=== PATIENT | male | born 1960 | race Caucasian/White ===

== ENCOUNTER → 2023-11-19 17:25 | Outpatient (REF) | payer OTHER, SELFPAY | LOC: MRI 3T 17:25 | PROVIDERS: ATTENDING PHYSICIAN Specialist; FAMILY PHYSICIAN Internal Medicine | DX: R97.20 Elevated prostate specific antigen [PSA] (principal) | CPT/HCPCS: 72197; A9575 ==

== ENCOUNTER 2024-01-20 13:49 | Outpatient (RCR) | payer OTHER, SELFPAY | END 2024-01-20 23:59 | disposition home or self-care (01) | LOC: RPT 13:49 | PROVIDERS: ATTENDING PHYSICIAN Specialist; FAMILY PHYSICIAN Internal Medicine | DX: C61 Malignant neoplasm of prostate (principal); Z73.6 Limitation of activities due to disability; R27.8 Other lack of coordination | CPT/HCPCS: 97112; 97161; 97530 ==

== ENCOUNTER 2024-01-22 15:08 | Inpatient (IN) | payer OTHER, SELFPAY ==
[2024-01-13 08:01] VITALS: BMI 25.2
[2024-01-13 08:55] LABS: INR 0.98; PT 12.8 Sec (11.4-14.6)
[2024-01-13 08:56] LABS: APTT 28.9 Sec (23.4-35.0)
--- NOTE | 2024-01-13 12:08 | CM ---
Patient is scheduled for a Robotic Prostatectomy on 01/22/24. Spoke with patient prior to surgery via telephone to complete case management assessment and assess for discharge planning needs. Patient reports that he lives with his in a multi
story home. There are three steps to enter and a flight of steps to the second floor. He currently functions independently. He has no DME and has never had VN services. He has a prescription plan and uses [facility] in [place].
PCP is Gely Roach
Discussed discharge plans. Patient plans to return home at discharge. Discussed possible need for VN services and reviewed options. Patient states that if services are needed, he has no preference for an agency. Discussed using VN for services
and he is agreeable.
[place] text sent to VN liaison, Ingrid Dominique, alerting her to surgery date and possible need for VN.
--- NOTE | 2024-01-20 15:33 | VNURNOTE ---
Home Health Liaison spoke with patient at 1530 by phone to discuss [facility] nurse visits and possible need following surgery.
Patient has had a catheter in past and does not anticipate need of VN at discharge.
Liaison will continue to follow and offer [facility] at discharge as needed.
[2024-01-22] VITALS (62 sets, daily range): BP systolic 70–149; BP diastolic 54–85; BMI 25.2
[2024-01-22] MEDS: NEOMYCIN ENEMA 1 BOTTLE RECTAL (06:35)
[2024-01-22] MEDS: NORMOSOL-R 1000 IV ×4 (07:02→21:09)
[2024-01-22] MEDS: SUBLIMAZE 25 MCG IV (12:29)
[2024-01-22] MEDS: DETROL LA 4 MG PO (12:40)
--- NOTE | 2024-01-22 13:06 | SUR.PHASEI ---
Pt.'s BP 88/58. Mentating. Following commands. Dr. Beal notified and will give a 500ml bolus and re-evaluate. Will continue to monitor
[2024-01-22 13:45] LABS: Hemoglobin 11.3 g/dL (13.0-18.0)
--- NOTE | 2024-01-22 13:45 | SUR.PHASEI ---
1300 BP in the 70's. Dr. Beal notified and will give a 500ml bolus. Pt asymptomatic.
1310 Dr. Harrison updated about pt.'s BP and will increase floor fluids to Normosol 150ml/hr after bolus.
1330 BP drops to 70's after bolus done and fluids started at 150ml/hr. Dr. Beal notified. Will draw H&H
1336 Dr. Harrison updated on this, will continue to monitor in PACU
--- NOTE | 2024-01-22 13:50 | SUR.PHASEI ---
1350 Dr. Beal at bedside and wants to hold off on Joe gtt and to give 250ml fluid bolus and then put pt on floor fluids 150ml/hr and see how he does and if low give intermittent 250ml fluid boluses. Will continue to monitor
--- NOTE | 2024-01-22 14:30 | SUR.PHASEI ---
Dr. Harrison at bedside and putting orders in for IMU and hospitalist consult
--- NOTE | 2024-01-22 14:33 | W.PN.URO.CBU ---
Today's Communication / Plan
-
will admit to IMU and consult Hospitalists to assist in supportive care
Assessment / Plan
-
post-op hypotension with normal HR, UO and acceptable H&H
Diagnosis
-
Date of Service: January 22, 2024
-
Patient Diagnosis: prostate cancer s/p robotic prostatectomy
Post Op Day: 0
Subjective
-
awake and conversant in PACU
no angina, dyspnea, leg pain
'I have to work to breath deeply enough so the monitor doesn't go off'
Objective
-
Vital Signs
Temp Pulse Resp BP Pulse Ox
98.5 F 80 18 84/60 96
01/22/24 11:55 01/22/24 14:30 01/22/24 14:30 01/22/24 14:25 01/22/24 14:30
Intake and Output
01/21/24 01/22/24 01/23/24
06:59 06:59 06:59
Output Total 250 / 250
Balance -250 / -250
Output:
Urine, Casarez 250 / 250
Laboratory Results
01/22/24 13:33
Physical Exam
-
General - well developed, well nourished, no acute distress
Chest - clear bilaterally
Abdomen - soft, no distention
Genitalia - Casarez drainining thinly bloody urine
Neuro - AOx3, no motor deficits
Extremities - no clubbing, no cyanosis, no edema
Dressings - clean, dry, intact
--- NOTE | 2024-01-22 15:18 | CON.HOSP ---
Consultation
-
Date/Time Consultation Requested: 01/22/24 2:30 PM
Date/Time Consultation Performed: 01/22/24 3:00 PM
Requesting Provider: Dr. Michael Harrison
Performing Provider: Dr. Azucena Day
Reason for Consultation: post op hypotension
Family Physician
-
Family Physician: Gely Roach
Chief Complaint
-
planned robotic prostatectomy
History of Present Illness
Patient is a 64-year-old male with a history of essential hypertension, hyperlipidemia diet controlled and prostate cancer who presented for planned robotic prostatectomy. Postop blood pressure has been running low (70s to 80s over 50s to 60s).
Estimated blood loss was approximately 75 mL, patient did not take any of his blood pressure medications today. He has not had any recent steroids. We are asked to see the patient for postoperative hypotension as the patient is going to the IMU.
Medical History
Past Medical History
Past Medical History: Reports Other
Additional Past Medical History:
Essential hypertension
Borderline hyperlipidemia�diet control
Anxiety/depression
Benign prostatic hyperplasia
Prostate cancer
Past Surgical History: Reports Other
Additional Past Surgical History:
Skin grafts
Left hydrocelectomy
Vasectomy
Clavicle repair
Fibular plate
Pins in his thumb
Social History
Tobacco: Non-smoker
Alcohol: Occasional
Drug: None
Personal:
Living: With Family
Family History
Family History: Reviewed & Not Pertinent
Allergies / Home Medications
Allergies reflects when Allergies were last updated in [employer].
Home Medications with original date entered in [employer]
Allergy/Medication List:
Allergies
Allergy/AdvReac Type Severity Reaction Status Date / Time
No Known Allergies Allergy Verified 01/22/24 06:14
Home Medications
fish oil-dha-epa 1,200 mg-144 mg-216 mg capsule 1 ea PO DAILY 01/10/16
lisinopril 40 mg tablet (Zestril) 40 mg PO DAILY 01/10/16
escitalopram oxalate 10 mg tablet (Lexapro) 10 mg PO DAILY 01/13/24
hydrochlorothiazide 25 mg tablet 25 mg PO DAILY 01/13/24
multivitamin 1 tab PO DAILY 01/13/24
naproxen sodium 220 mg capsule 440 mg (2 x 220 mg) PO BID PRN pain #1 cap 01/22/24
tramadol 50 mg tablet 50 mg PO TID PRN severe pain #10 tabs 01/22/24
Review of Systems
-
History Source: Patient
Constitutional: Reports No Symptoms
EENT: Reports No Symptoms
Respiratory: Reports No Symptoms
Cardiac: Reports No Symptoms
Abdomen/GI: Reports No Symptoms
: Reports No Symptoms
Musculoskeletal: Reports No Symptoms
Skin: Reports No Symptoms
Neurological: Reports No Symptoms
Endocrine: Reports No Symptoms
Hematologic/Lymphatic: Reports No Symptoms
Psych: Reports No Symptoms
Physical Exam
Vital Signs
Vital Signs
Temp Pulse Resp BP Pulse Ox
98.5 F 86 15 82/59 97
01/22/24 11:55 01/22/24 15:05 01/22/24 15:05 01/22/24 15:05 01/22/24 15:10
Physical Exam
General: Well Developed, Well Nourished and No Apparent Distress
HEENT: Normocephalic, Anicteric and Oxygen (Postop)
Respiratory: Clear; Negative Wheezes, Rales or Rhonchi
Cardiac: S1/S2 and Regular Rhythm; Negative Bradycardia or Tachycardia
GI: Soft, Non Distended, Normal Bowel Sounds and Tender (post op)
Musculoskeletal: No Clubbing, No Cyanosis and No Edema
Skin: Warm
Neuro: Awake and Alert
Psych: Calm
Laboratory Results
-
Laboratory Results
01/22/24 13:33
PT 12.8 Sec (11.4-14.6) 01/13/24 07:56
INR 0.98 01/13/24 07:56
APTT 28.9 Sec (23.4-35.0) 01/13/24 07:56
Impression / Plan
-
Pt is a 64 year old male
post op hypotension--suspect all due to anesthesia, poor PO intake pre surgery, colon prep--agree with transition to IMU--cont normosol at 200ml/hr--ordered abbi if needed to keep SBP > 90--I do not believe this is sepsis, acute blood loss, improper
cuff size, recent steroid use, etc
essential HTN--HOLD all BP meds for now--BP at home usually runs 140 systolic
HLD--diet controlled
prostate cancer--post op robotic--care per urology
anxiety/depression--hold meds acutely
DVT proph
code status -- FULL CODE
[2024-01-22] MEDS: TORADOL 15 MG IV ×2 (16:44→21:10)
[2024-01-22] MEDS: COLACE PO (17:57)
--- NOTE | 2024-01-22 18:06 | PTCARENOTE ---
Patient received from PACU. AAox3, reports mild discomfort in abd, VS within normal limits. Ordering dinner at this time, family at bedside.
[2024-01-22] MEDS: POLYSPORIN/DOUBLE ANTIBIOTIC 1 APPLIC TOPICAL (21:08)
[2024-01-22] MEDS: POLYSPORIN/DOUBLE ANTIBIOTIC TOPICAL (21:08)
[2024-01-23] VITALS (28 sets, daily range): BP systolic 76–151; BP diastolic 50–133; PULSE 95–115; BMI 25.8
[2024-01-23] MEDS: TYLENOL 650 MG PO (00:19)
--- NOTE | 2024-01-23 00:30 | PTCARENOTE ---
Received pt at the change of shift awake and alert and family in the room. He was eating dinner. Drinking fluids without difficulty. Abd dressings are dry and intact. he has incisional pain with movement and deep breathing and pt states it is
tolerable. Medicated with Tylenol for pain rated 4/10. Pt's skin is warm and dry and he is able to move and turn on his side without difficulty. No bleeding noted. Casarez draining tea colored urine 350cc so far this shift. IV fluids infusing at
200cc/hr. Bladder scanned for 21 cc. Pt reports his pain is middle to lower abdomen with no bladder spasms.
[2024-01-23] MEDS: NORMOSOL-R 1000 IV (01:53)
[2024-01-23] MEDS: MORPHINE SULFATE 4 MG IV (01:55)
--- NOTE | 2024-01-23 02:39 | PTCARENOTE ---
Pt complained of abd pain, incisional pain, also thought he needed to have a BM, sat on side of bed and pt became unresponsive, laid back down and when flat pt was more alert. Cardiac rhythm did not change when pt was unresponsive, Rhythm was NSR.
Back in bed lying flat and bp WNL. [place] better. Gave pt Morphine for pain and he felt better. Will continue to monitor.
[2024-01-23] MEDS: TORADOL 15 MG IV (04:23)
[2024-01-23 05:47] LABS: % Basophils 0.1 % (0-2); % Eosinophils 0.1 % (0-6); % Immature Granulocytes 0.3 % (0-0.5); % Monocytes 13.7 % (1.7-9.3); % Neutrophils 71.8 % (42.2-75.2); Absolute Lymphocytes 1.8 10^3/uL (1.2-3.4); Absolute Monocytes 1.7 10^3/uL (0.1-0.6); Absolute Neutrophils 8.9 10^3/uL (1.4-6.5); Hematocrit 22.1 % (39.0-52.0); Mean Corp Hgb Conc. 35.7 g/dL (33.0-37.0); Mean Corpuscular Hgb 29.9 pg (27.0-31.0); Mean Corpuscular Volume 83.7 fL (80.0-94.0); Mean Platelet Volume 9.5 fL (7.4-10.4); Nucleated Red Blood Cells % 0 % (-); Platelet Count 270 10^3/uL (130-400); Red Blood Cell Count 2.64 10^6/uL (4.70-6.10); Red Cell Dist. Width 13.1 % (11.5-14.5); White Blood Cell Count 12.5 10^3/uL (4.8-10.8)
[2024-01-23 06:25] LABS: ALT (SGPT) 27 U/L (0-50); AST (SGOT) 22 U/L (17-59); Albumin 2.5 g/dl (3.5-5.0); Alkaline Phosphatase 40 U/L (38-126); Blood Urea Nitrogen 23 mg/dl (9-20); Calcium 7.5 mg/dl (8.4-10.2); Carbon Dioxide 29 mmol/L (22-30); Chloride 92 mmol/L (98-107); Estimated Creatinine Clearance 105 ml/min; Glucose 118 mg/dl (70-99); Potassium 4.1 mmol/L (3.5-5.1); Sodium 125 mmol/L (135-145); Total Bilirubin 0.6 mg/dl (0.2-1.3); Total Protein 4.3 g/dl (6.3-8.2); eGFR > 60.00
[2024-01-23 06:30] LABS: Hemoglobin 7.9 g/dL (13.0-18.0)
--- NOTE | 2024-01-23 07:34 | W.PN.URO.CBU ---
Today's Communication / Plan
-
H&H drop is concerning for bleeding, though could be exaggerated by vigorous hydration
HD stable
making urine
expected degree of A-P discomfort post-op
Plan:
stop IVF
will recheck H&H ~ 2 PM and provisionally T&S
Hospitalists' support is appreciated.
Assessment / Plan
-
post-op hypotension with normal HR, UO and acceptable H&H
Diagnosis
-
Date of Service: January 23, 2024
-
Patient Diagnosis:
Post Op Day:
Patient Diagnosis: prostate cancer s/p robotic prostatectomy
Post Op Day: 1
Subjective
-
'feels like gas' -- abdominal-pelvic discomfort
no dyspnea/angina/leg pain
Objective
-
Vital Signs
Temp Pulse Resp BP Pulse Ox
99.0 F 85 21 122/79 94
01/23/24 04:15 01/23/24 06:30 01/23/24 06:30 01/23/24 06:00 01/23/24 06:30
Intake and Output
01/22/24 01/23/24 01/24/24
06:59 06:59 06:59
Intake Total 5300 / 5300
Output Total 1250 / 1250
Balance 4050 / 4050
Intake:
Oral fluids 900 / 900
IV fluids (Total) 4400 / 4400
normosol 2000 / 2000
Output:
Urine, Casarez 1250 / 1250
Laboratory Results
01/23/24 05:36
Physical Exam
-
General - no acute distress
Abdomen - mildly tender, positive bowel sounds, mild distention
Genitalia - Casarez with shannon urine
Skin - warm & dry with no rash
Neuro - AOx3, no motor deficits
Extremities - no clubbing, no cyanosis, no edema
Dressing - clean, dry, intact
--- NOTE | 2024-01-23 07:56 | PTCARENOTE ---
Received Pt from material handler 1st shift. Pt c/o need for BM. Pt assisted to sit on side of bed. While sitting on side, pt with near syncopal episode. Pt assisted to lie back down. Pt provided with bed vasques. Educated regarding safety precautions, call miles use,
not getting up without assistance. call miles in reach.
--- NOTE | 2024-01-23 08:03 | PTCARENOTE ---
At 0630 hgb reported as 7.[address] Maynard and order given to recheck Hand H at [address] also informed of pt's urine output and vagal episode during this shift. as noted in a prior note. Pt felt much better after receiving Morphine IV for abd
pain and slept well without beverley further complaints.
[2024-01-23] MEDS: ZESTRIL 40 MG PO (09:01)
[2024-01-23] MEDS: ORETIC 25 MG PO (09:04)
[2024-01-23] MEDS: COLACE PO ×3 (09:04→15:40)
[2024-01-23] MEDS: LEXAPRO 10 MG PO (09:04)
[2024-01-23] MEDS: POLYSPORIN/DOUBLE ANTIBIOTIC 1 APPLIC TOPICAL ×2 (09:05→20:41)
--- NOTE | 2024-01-23 09:27 | W.PN.HOSP.TC ---
Addendum entered and electronically signed by Azucena Day MD 01/23/24 17:53:
hyponatremia--likely due to significant IVF resuscitation for hypotension
Original Note:
Today's Communication/Plan
-
would try orthostatics later in the day
cont diet
stop IVF
hold BP meds
Assessment / Plan
Assessment / Plan
Pt is a 64 year old male
post op hypotension--suspect all due to anesthesia, poor PO intake pre surgery, colon prep--never needed pressors--BP no 151/86 but likely orthostatic with syncope--I do not believe this is sepsis, improper cuff size, recent steroid use, etc
anemia--likely acute 'loss' from IV dilution (aggressive IVF)--EBL from surgery only 75ml--doubt active bleeding--will check H&H at noon--if still low, consider transfusion
essential HTN--HOLD all BP meds for now--BP at home usually runs 140 systolic
HLD--diet controlled
prostate cancer--post op robotic--care per urology
anxiety/depression--hold meds acutely
DVT proph
code status -- FULL CODE
Anticipated Discharge: 24 - 48 hours
Subjective/Interval History
-
Date of Service: January 23, 2024
pt had syncopal episode likely still somewhat orthostatic
Objective Data
-
Labs:
Laboratory Results
01/23/24 01/23/24 01/23/24
05:36 12:00 14:00
WBC 12.5 H Cancelled
Hgb 7.9 L D Pending Cancelled
Hct 22.1 L Pending
Plt Count 270
Sodium 125 L
Potassium 4.1
Chloride 92 L
Carbon Dioxide 29
BUN 23 H
Creatinine 0.8
Glucose 118 H
Calcium 7.5 L
Total Bilirubin 0.6
AST 22
ALT 27
Alkaline Phosphatase 40
01/23/24 01/23/24
14:00 14:00
WBC
Hgb Pending
Hct Cancelled Pending
Plt Count Cancelled
Sodium
Potassium
Chloride
Carbon Dioxide
BUN
Creatinine
Glucose
Calcium
Total Bilirubin
AST
ALT
Alkaline Phosphatase
Vital Signs:
max temp for 24 hours
01/23/24
04:15
Temp 99.0 F
Vital Signs
Temp Pulse Resp BP Pulse Ox
99.3 F 85 21 151/86 94
01/23/24 07:00 01/23/24 06:30 01/23/24 06:30 01/23/24 09:04 01/23/24 06:30
I&O
01/22/24 01/23/24 01/24/24
06:59 06:59 06:59
Intake Total 5300 / 5300
Output Total 1250 / 1250
Balance 4050 / 4050
Review of Systems
-
All other systems: Reviewed and negative
Physical Exam
-
General: Well Developed, Well Nourished and No Apparent Distress
HEENT: Normocephalic and Atraumatic
Respiratory: Clear to Auscultation; Negative Wheezes or Rhonchi
Cardiac: Regular Rhythm and S1/S2; Negative Murmur
GI: Soft, Nontender, Nondistended and Normal Bowel Sounds
Genito-urinary: Casarez
Musculoskeletal: No Clubbing, No Cyanosis and No Edema
Neuro: Awake and Alert
Psych: Calm
--- NOTE | 2024-01-23 12:42 | PN.CDI ---
CDI
- -
CDI:
Physician Documentation Request
Admit Date: 01/22/24 15:08
Dear Doctor Shay
,
Please review the following and provide your response in the progress notes.
Clinical Indicators:
Laboratory Tests
01/23/24
05:36
Sodium 125 L
Please clarify in the progress notes, the appropriate diagnosis, if significant, that supports the above abnormalities and additional evaluation, monitoring and/or treatment rendered:
Hyponatremia
Abnormal lab value, clinically insignificant
Other
Use of terms such as suspected, likely, concern for, or probable (associated with a specific diagnosis that is being evaluated, monitored, or treated as if it exists) are acceptable and can be coded in the inpatient setting, when documented at the
time of discharge.
Thank you,
Azucena Araujo RN BSN CCDS
CDI Specialist
please contact via tiger text
Please use your independent medical judgment in providing your response.
[2024-01-23 13:37] LABS: Hemoglobin 7.3 g/dL (13.0-18.0)
[2024-01-23 13:52] LABS: Hematocrit 20.3 % (39.0-52.0)
--- NOTE | 2024-01-23 14:20 | PTCARENOTE ---
Pt's hgb down to 7.3. Positive orhostatic vitals. Notified Dr. Harrison and Dr. Day. 2 units PRBC ordered
--- NOTE | 2024-01-23 15:17 | CM ---
Patient with Dx prostate cancer s/p robotic prostatectomy with post op hypotension, anemia. Abdominal dressings. Mayorga in place.
Met with patient who resides with his in a 2 story house.
The patient has been independent in ADLs and ambulation.
Prior to admission he was active and working.
The patient has no DME, prior VN or SNF.
PCP - Gely Roach
Pharmacy - [facility]
CM Consult: VN
Remove mayorga and skin nasrin then apply Benzoin & Steri Strips during am 01/30.
Hand irrigate mayorga TID prn w 250 ml sterile saline or H20.
(see consult for full MD order)
Offered VN for abdominal wound care and mayorga cath care and patient agreed - he prefers [facility].
Referral to [facility].
Plan home with [facility].
--- NOTE | 2024-01-23 15:30 | W.PN.UPDATE ---
Update Note
Progress Note Update
H&H down slight further and hypotension persists, so after communication with Dr Day and RN, a decision has been made to transfuse 2 units PRBCs for presumed post-op bleeding.
--- NOTE | 2024-01-23 16:13 | VNURNOTE ---
Home Health Liaison met with patient at 1530 to discuss [facility] nurse visits. Patient is agreeable and understands that visits at home will be 2-3 x per week to assess and teach medical managementq and catheter care.
[facility] brochure provided with contact information. Patient is aware that [facility] will contact him for start of care in 1-2 days after discharge from .
[facility] referral completed in [facility].
[2024-01-23] MEDS: CYKLOKAPRON 1300 MG PO (16:21)
--- NOTE | 2024-01-23 17:21 | PTCARENOTE ---
RTC from blood bank stating they were having difficulty determing pt's blood type and that they had to conduct extra investigation. Pt reports he is A+ and blood bank was able to determine that he is A+. Blood Bank felt this issue may be related to
his cancer diagnosis or meds. RN updated Dr. Day and Dr. Harrison via TT of this issue
--- NOTE | 2024-01-23 18:19 | PTCARENOTE ---
Pt O2 sat 90-92 on . RN provided eduation on IS usage. Pt demonstrated good technique.
--- NOTE | 2024-01-23 21:47 | PTCARENOTE ---
Pt complaining of not being able to take a deep breath. Resp rate 33. Pox 87-91% on room air. Just finished infusing his first unit of PRBC's Pt used Incentive spirometry up to 1500cc but still feels like he's not breathing right. He does have
incisional pain with deep breathing and moving and does splint his abdomen with movement and deep breathing. Placed on O2 a2 L NC and pox improved to 95%Breath sounds are very diminished bilaterally. Casarez draining clear yellow urine, small
amounts. ENGINEERING ILLUSTRATOR notified and Dr Ta TT orders to follow. Arellano continue to monitor.
--- NOTE | 2024-01-23 22:16 | W.PN.UPDATE ---
Update Note
Progress Note Update
Called by nurse due to shortness of breath and mild hypoxia following blood transfusion of first unit PRBCs
Transfusion delayed due to difficulty obtaining patient's blood type, eventually determined to be A+
Vitals with mild tachycardia and 92% on 2L, otherwise stable BP and improved from initial post op hypotension
I/O unbalanced - has had good urine output today but large volume of IVF in past 24hrs
Ordered STAT cbc, bmp, troponin, EKG, d-dimer, CXR
Reviewed with Dr. Harrison - no intraop concerns
Differential includes transfusion reaction, fluid overload, PE, bleeding complication, ACS
[2024-01-23 22:35] LABS: Hemoglobin 7.7 g/dL (13.0-18.0); Mean Corp Hgb Conc. 36.7 g/dL (33.0-37.0); Mean Corpuscular Hgb 30.4 pg (27.0-31.0); Mean Platelet Volume 9.1 fL (7.4-10.4); Platelet Count 248 10^3/uL (130-400); Red Blood Cell Count 2.53 10^6/uL (4.70-6.10); Red Cell Dist. Width 13.2 % (11.5-14.5); White Blood Cell Count 10.5 10^3/uL (4.8-10.8)
[2024-01-23 22:48] LABS: D-Dimer 2.63 ug/mlFEU (0.00-0.50)
[2024-01-23 22:49] LABS: Blood Urea Nitrogen 17 mg/dl (9-20); Calcium 7.6 mg/dl (8.4-10.2); Carbon Dioxide 27 mmol/L (22-30); Chloride 94 mmol/L (98-107); Estimated Creatinine Clearance 120 ml/min; Glucose 110 mg/dl (70-99); Potassium 3.8 mmol/L (3.5-5.1); Sodium 123 mmol/L (135-145); eGFR > 60.00
[2024-01-23] MEDS: MORPHINE SULFATE 1 MG IV (22:56)
[2024-01-23 23:00] LABS: Troponin I < 0.012 ng/ml
[2024-01-23] MEDS: CYKLOKAPRON PO (23:02)
--- NOTE | 2024-01-23 23:04 | W.PN.UPDATE ---
Update Note
Progress Note Update
Labs show some HGB response to transfusion - not enough time to equilibrate post transfusion so may be inaccurate
CXR doesn't show obvious fluid overload, however will give lasix given significant I/O imbalance
EKG with minor changes from preop, no ACS
Patient assessed at bedside by eye care professional provider and appears SOB. Repeat vitals stable with 97% on 2L, no hypotension
D dimer is elevated
CT PE protocol and CT abd/pel ordered
[2024-01-23] MEDS: LASIX 40 MG IV (23:06)
[2024-01-24] VITALS (67 sets, daily range): BP systolic 86–186; BP diastolic 51–116; BMI 26.8
--- NOTE | 2024-01-24 00:36 | PTCARENOTE ---
t had Chest X ray and ECG and blood work per Dr Vyas orders. Pt also went for a CT of abd and chest. Radiologist Called with report of CT scan. 'Large hemoperitoneum due to an active extravasation of a L internal iliac vessel. ' Reported to
INFORMATICS APPLICATION ANALYST and she was in contact with Dr Ta and Dr Syed chaudhry and Vascular surgeon. Second unit ob blood started. Surgeon on the way in.
[2024-01-24] MEDS: NSS 1000 IV ×2 (00:43→02:37)
--- NOTE | 2024-01-24 01:18 | PTCARENOTE ---
Pt became nauseous and diaphoretic and pale and BP was low 86/51. HOB lowered and Pt positioned on his L side and Iv=V fluids are running wide open. Blood is also running and pt feels better. skin is now dry and he is more comfortable and BP 16.65
MAP 80. HR 98 RR 31
[2024-01-24 01:19] LABS: Venous Blood Gas B.E. 3.5 mmol/L (-4 to +4); Venous Blood Gas HCO3 27.8 mmol/L (22-27); Venous Blood Gas O2 Sat % 99.7 %; Venous Blood Gas pCO2 40 mmHg (35-48); Venous Blood Gas pH 7.45 (7.32-7.43); Venous Blood Gas pO2 174 mmHg (30-50)
[2024-01-24 01:31] LABS: Lactic Acid 1.5 mmol/L (0.7-2.0); PT 15.7 Sec (11.4-14.6)
[2024-01-24 01:32] LABS: APTT 26.7 Sec (23.4-35.0); Fibrinogen 290 MG/DL (199-459)
[2024-01-24 01:34] LABS: INR 1.25
--- NOTE | 2024-01-24 01:48 | W.PN.UPDATE ---
Update Note
Progress Note Update
CT scan showed pelvic hematoma with some active contrast extravasation
CT chest did not show obvious PE but limited by motion artifact
Case discussed with vascular surgery and interventional radiology - based on relatively stable HGB today after initial drop, an active arterial bleed amenable to percutaneous intervention is unlikely
Patient seen and examined at bedside
Some hypotension after returning from CT scan quickly improved with IV fluid bolus and the start of second unit of blood
BPs currently in 110s/70s
Post transfusion HGB ordered for 2 hours after completion
Transfer to ICU for closer monitoring
Discussed plan with patient and family
--- NOTE | 2024-01-24 02:00 | SUR.OPER ---
Pt transferred from IMU. Received resting comfortably in bed. Pt states 'I feel much better'. at bedside. AAOx3-slightly anxious. Forgetful at times. SR on the monitor. Normotensive. + pulses. Tachypneic RR high 20s-30s. Lungs clear pox 98% on
2L. +BS. Abd mildly distended + tender - c/o 2/10 pain. 5 sites across abd dressed w/ gauze and tegaderm. CDI. NS Bolus running and PRBC (2nd unit). Oriented to room.
--- NOTE | 2024-01-24 02:39 | TRANSFER ---
Pt transferred to ICU via his bed accompanied by his at the bedside. Dr Ta was at the bedside updating and patient on the plan of care. NSS IV running wide open in new R arm IV site and Blood infusing via L fore arm IV. Pt is able
to ask questions and is alert. Report given to Lilly.
[2024-01-24] MEDS: CALCIUM GLUCONATE 130 MG IV (03:22)
[2024-01-24 05:18] LABS: Hemoglobin 7.2 g/dL (13.0-18.0); Mean Corp Hgb Conc. 35.3 g/dL (33.0-37.0); Mean Corpuscular Hgb 30.3 pg (27.0-31.0); Mean Corpuscular Volume 85.7 fL (80.0-94.0); Mean Platelet Volume 9.7 fL (7.4-10.4); Platelet Count 219 10^3/uL (130-400); Red Blood Cell Count 2.38 10^6/uL (4.70-6.10); Red Cell Dist. Width 12.9 % (11.5-14.5); White Blood Cell Count 15.2 10^3/uL (4.8-10.8)
[2024-01-24 05:19] LABS: Hematocrit 20.4 % (39.0-52.0)
[2024-01-24 05:34] LABS: Blood Urea Nitrogen 17 mg/dl (9-20); Calcium 8.2 mg/dl (8.4-10.2); Carbon Dioxide 27 mmol/L (22-30); Chloride 95 mmol/L (98-107); Estimated Creatinine Clearance 120 ml/min; Glucose 119 mg/dl (70-99); Magnesium 1.9 mg/dl (1.6-2.3); Potassium 4.2 mmol/L (3.5-5.1); Sodium 127 mmol/L (135-145); eGFR > 60.00
--- NOTE | 2024-01-24 06:20 | PTCARENOTE ---
Addendum entered by Lilly Weir RN 01/24/24 07:37:
Pt w/ c/o nausea - 1x Zofran ordered.
Original Note:
Pt w/ new noted bruising to R flank/back area. 1 unit of blood transfusing. Urology made aware.
[2024-01-24] MEDS: ZOFRAN 4 MG IV (06:35)
--- NOTE | 2024-01-24 07:36 | W.SUR.PREOP ---
Pre-Operative Surgical Note
-
Due to evidence of symptomatic, persistent, post-op bleeding, the patient will be returned to OR for exploration, evacuation of hematoma and stoppage of persistent bleeding.
at bedside.
OR consent signed.
--- NOTE | 2024-01-24 07:44 | CON.INTV ---
Addendum entered and electronically signed by Tamia Pryor MD 01/24/24 08:21:
Reviewed EKG. Isolated Q-wave in lead III
Not present on preadmission EKG
Patient is without any chest pain, nausea, heartburn
states patient has never had any cardiac issues. 'He is healthy'
Notified urology and hospitalist
Original Note:
Consultation
Consultation Request
Date/Time Consultation Requested: 01/23
Date/Time Consultation Performed: 01/23
Reason for Consultation: Critical care
Medical History
-
History of Present Illness:
History obtained from the chart, patient and at bedside. Patient is a 64-year-old male with recently diagnosed prostate cancer, status post robotic prostatectomy 01/22/2024. Postoperatively, pulse 80, blood pressure 80/60, 96%. Postoperative
course significant for drop in hemoglobin postoperatively and shortness of breath. Patient was given IV fluids, transfused 2 units and transferred to ICU. Hypotension improved per urology correspondence overnight. Despite 2 units of transfusion,
hemoglobin remained between 7 and 8 with no appropriate bump. Abdominal imaging revealed large left pelvic hematoma, with complex/hemorrhagic fluid. There is no evidence of PE. There is pneumoperitoneum. We are asked to help from critical care
standpoint
Currently, patient is getting his third unit. He is feeling improved since yesterday p.m. He has some mild nausea/GERD symptoms but denies chest pain, shortness of breath. He does have abdominal pain, worse with cough spasms. He is lying flat,
at bedside
.
PMH: Hypertension, hyperlipidemia, prostate cancer
Past Medical History
Past Medical History: None (See above)
Past Surgical History: None (See above)
Social History
Tobacco: Former Smoker (Quit 40 years ago)
Alcohol: Occasional
Drug: None
Personal:
Living: With Family
Employment: Employed (IT)
Family History
Family History: Other (Father from Parkinson's, mother alive at age 84. 2 daughters healthy. 1 sister healthy.)
Allergies / Home Medications
Allergies
Allergy/AdvReac Type Severity Reaction Status Date / Time
No Known Allergies Allergy Verified 01/22/24 06:14
Home Medications
�Medication �Instructions �Recorded �Confirmed �Last Taken �Type
fish oil-dha-epa 1,200 mg-144 1 ea PO DAILY Supplement 01/10/16 01/22/24 01/08/24 History
mg-216 mg capsule
lisinopril 40 mg tablet (Zestril) 40 mg PO DAILY Blood Pressure 01/10/16 01/22/24 01/21/24 05:00 History
escitalopram oxalate 10 mg tablet 10 mg PO DAILY Mental 01/13/24 01/22/24 01/22/24 05:00 History
(Lexapro) Health/Anxiety
hydrochlorothiazide 25 mg tablet 25 mg PO DAILY Fluid 01/13/24 01/22/24 01/21/24 08:00 History
Retention/Swelling
multivitamin 1 tab PO DAILY Supplement 01/13/24 01/22/24 01/08/24 History
naproxen sodium 220 mg capsule 440 mg (2 x 220 mg) PO BID PRN 01/22/24 Unknown Rx
pain #1 cap
tramadol 50 mg tablet 50 mg PO TID PRN severe pain #10 01/22/24 Unknown Rx
tabs
Review of Systems
-
All other systems: Negative unless noted
Vitals / Labs / Diagnostic Testing
Vital Signs
Temp Pulse Resp BP Pulse Ox
98.8 F 95 26 136/79 99
01/24/24 07:32 01/24/24 06:42 01/24/24 06:42 01/24/24 06:42 01/24/24 06:42
Lab Data
01/24/24 04:54
Laboratory Results
01/24/24
01:12
PT 15.7 H
INR 1.25
APTT 26.7
Diagnostic Testing:
Physical Exam
-
HEENT: Normocephalic and Anicteric
Cardiovascular: S1/S2, Regular Rhythm, Murmur (n) and Rub (n)
Respiratory: Wheeze (n), Rales (n), Rhonchi (n) and Non-Labored Respirations
GI: Soft, Distended and Tender
Neurology: Awake, Alert, Oriented and No Motor Deficits (Moves all extremities, sequential teds in place)
Skin: Other (No rash)
General: Comfortable (Lying flat)
Assessment
-
64-year-old male with history of hypertension status post robotic prostatectomy 01/22/24, complicated by hypotension, anemia requiring transfusion, shortness of breath. Imaging suggest large left sided pelvic wall hematoma. Patient transferred to
ICU 01/24/24
Hypotension, secondary to bleeding
Improved with IV fluids, transfusion
Postoperative anemia, hemoglobin 7.2
s/p 3U tx
Pelvic wall hematoma per imaging
S/p robotic prostatectomy 01/22/24
Mild leukocytosis
Abnormal EKG
Nonspecific T wave changes, inferior Q-wave lead III
Conditions present prior to admission
Hypertension
Distant tobacco history
Plan/recommendation
At this time, patient states he feels much improved since yesterday p.m. Third unit of blood currently hanging
Patient does describe some mild heartburn and nausea overnight
After expectorating mucus this morning during my examination, this symptom resolved chest exam is clear.
Patient received TXA overnight
Moving forward, abdominal imaging reviewed. Large hematoma noted
Apparently, plan is for patient to go to the OR for evacuation and assessment
Patient heartburn symptoms and nausea improved after expectorating mucus
Check EKG
Continue IV fluids
Currently third unit of blood. Patient is subjectively improved
Denies any shortness of breath at this time
Patient denies any prior cardiac history. Presently without chest pain, GERD symptoms, nausea
Chest x-ray yesterday p.m. with decreased lung volumes, bibasilar atelectasis
Reviewed with critical care nursing, patient, at bedside
Contacted primary service, urology
Briefly discussed with vascular surgery
Will follow
TCCT 35 min
--- NOTE | 2024-01-24 09:18 | W.PN.HOSP.TC ---
Today's Communication/Plan
-
Urology performed surgery to stop intraperitoneal bleeding
Blood pressure better -- no hypotension
Monitor Hgb
Assessment / Plan
Assessment / Plan
Physical Exam
General: Well Developed, Well Nourished and No Apparent Distress
HEENT: Normocephalic and Atraumatic
Respiratory: Clear to Auscultation; Negative Wheezes or Rhonchi
Cardiac: Regular Rhythm and S1/S2; Negative Murmur
GI: Soft, Nontender, Nondistended and Normal Bowel Sounds
Genito-urinary: Casarez
Musculoskeletal: No Clubbing, No Cyanosis and No Edema
Neuro: Awake and Alert
Psych: Calm
Assessment/Plan
[id number] � consult from urology � 64 yo male had robotic prostatectomy for prostate cancer and developed postoperative hypotension--significantly volume resuscitated with large amounts of IV fluids--was placed in IMU but did not need
pressors--patient was still orthostatic--hemoglobin did drop to 7.3--4 units TOTAL packed red blood cells transfused--follow numbers and orthostatics �estimated blood loss from the surgery was only 75 mL--Dr. Day did ask urology whether or not
we should scan his abdomen--urology preferred to hold off at this time (but CT A/P ordered on 01/23/24 evening)--patient also hyponatremic but was felt this was from significant IV fluids--IV fluids were stopped on January 24, 2024 in favor of blood
transfusion--if still low may consider nephrology consult

Pt is a 64 year old male
Persistent post-op intraperitoneal bleeding -- status post ex-lap, hematoma evacuation, stoppage of bleeding by urology on January 25, 2024
post op hypotension--RESOLVED--suspect all due to anesthesia, poor PO intake pre surgery, colon prep--never needed pressors--not believed to be sepsis, improper cuff size, recent steroid use, etc
Q Waves in one lead on EKGs -- patient asymptomatic (with regards to an ACS process); Dr. Barcenas discussed with Dr. Pryor on January 24, 2024 -- and cardiology did not seem concerned so monitor for now
anemia--likely acute 'loss' from IV dilution (aggressive IVF)--EBL from surgery only 75ml--doubt active bleeding--Hgb has improved to the 8 g/dl range now
essential HTN--currently HOLDING all BP meds--BP at home usually runs 140 systolic--blood pressure now looks on the higher side--consider restarting blood pressure medications
HLD--diet controlled
prostate cancer--post op robotic--care per urology
anxiety/depression--hold meds acutely--can consider restarting soon
DVT proph
code status -- FULL CODE
Anticipated Discharge: > 48 hours
Subjective/Interval History
-
Date of Service: January 24, 2024
Patient was seen and examined. He reported no new symptoms or complaints.
Objective Data
-
Labs:
Laboratory Results
01/23/24 01/24/24 01/24/24
22:28 01:12 04:54
WBC 10.5 15.2 H
Hgb 7.7 L 7.2 L
Hct 21.0 L 20.4 L*
Plt Count 248 219
PT 15.7 H
INR 1.25
APTT 26.7
Sodium 123 L 127 L
Potassium 3.8 4.2
Chloride 94 L 95 L
Carbon Dioxide 27 27
BUN 17 17
Creatinine 0.7 0.7
Glucose 110 H 119 H
Calcium 7.6 L 8.2 L
01/24/24 01/24/24 01/24/24
10:00 16:00 22:00
WBC
Hgb Pending Pending Pending
Hct Pending Pending Pending
Plt Count
PT
INR
APTT
Sodium
Potassium
Chloride
Carbon Dioxide
BUN
Creatinine
Glucose
Calcium
Vital Signs:
Vital Signs
Temp Pulse Resp BP Pulse Ox
99.3 F 98 28 117/93 98
01/24/24 08:06 01/24/24 08:06 01/24/24 08:06 01/24/24 08:06 01/24/24 07:38
I&O
01/23/24 01/24/24 01/25/24
06:59 06:59 06:59
Intake Total 5300 / 5300 1979 / 1979 250 / 250
Output Total 1250 / 1250 2325 / 2325
Balance 4050 / 4050 -345 / -345 250 / 250
--- NOTE | 2024-01-24 10:35 | PTCARENOTE ---
Pt received in bed @ 0700. AAOx3. Anxious. at bedside. Abdomen tender but denying pain at rest. Stating generalized weakness. SaO2 98% on room air. Lungs clear to auscultation. Casarez draining yellow urine. Abdomen round, distended, tender. New
bruising observed on right flank by previous shift and Dr. Ta notified. Dr. Harrison in to see patient; consent obtained for surgery. Ordered unit of blood completed. Report given to OR and patient transported there.
[2024-01-24] MEDS: ORETIC PO (10:45)
[2024-01-24] MEDS: COLACE PO ×3 (10:45→16:37)
[2024-01-24] MEDS: POLYSPORIN/DOUBLE ANTIBIOTIC 1 APPLIC TOPICAL ×2 (11:00→19:04)
--- NOTE | 2024-01-24 11:03 | W.IMMPOSTOP ---
Surgical Immed Post Op Note
-
Primary Surgeon: Hunter
Assisting Surgeon: Keyon
Pre-op Diagnosis: persistent post-op intraperitoneal bleeding
Post-op Diagnosis: same
Procedure Performed: ex-lap, hematoma evacuation, stoppage of bleeding
Anesthesia Type: gen + local
Specimen / Cultures: none
Estimated Blood Loss: 200 ml
Complications: none
Operative Findings: hematoma in abdomen and pelvis; active oozing in left obturator fossa
d/w immediately post-op
[2024-01-24 11:38] LABS: Hematocrit 24.3 % (39.0-52.0); Hemoglobin 8.4 g/dL (13.0-18.0)
[2024-01-24] MEDS: CYKLOKAPRON 1300 MG PO ×3 (11:55→21:51)
[2024-01-24] MEDS: TYLENOL 650 MG PO ×3 (11:56→20:39)
[2024-01-24] MEDS: LEXAPRO 10 MG PO (11:59)
--- NOTE | 2024-01-24 12:21 | PTCARENOTE ---
Pt returned from OR. Denying pain. Stating he 'feels better.' Drowsy. Able to follow commands and answer all questions. SaO2 96% on 5L NC. Deep breathing encouraged. Witnessed incentive spirometer use. Weaned to 2L NC; SaO2 95%. Abdomen no longer
round. Previous laparoscopic sites with gauze removed. Now surgical nasrin apparent, approximated and without leaks. Casarez in place draining yellow. OR stated they emptied it for 300ml prior to bringing back to room. 1 additional unit of PRBC's
administered in OR for total 4 units of PRBC's. at bedside. Repeat Hgb resulted 8.4. Next H&H ordered for 22:00.
--- NOTE | 2024-01-24 12:38 | W.PN.UPDATE ---
Update Note
Progress Note Update
'feel better'
brushing teeth in bed
'less bloated, less reflux'
HD stable
H&H up
--- NOTE | 2024-01-24 14:40 | CM ---
Addendum entered by Damián Awan 01/24/24 14:56:
[facility] discharge instructions fax: [phone]
Original Note:
CM following re: discharge planning.
Reviewed pt's chart, met with pt, pt's spouse at bedside.
Pt went to OR today for ex-lap, hematoma evacuation, stoppage of bleeding procedure.
Pt is independent in all areas [employer], drives, works.
Pt referred to [facility]
D/C plan: home with [facility] and family support. Spouse to transport at discharge.
CM will follow with discharge plan updates as hospitalization progresses
--- NOTE | 2024-01-24 17:00 | PTCARENOTE ---
Pt with serosanguineous drainage around ZAID insertion site. Dressing saturated with leakage to gown, sheets, and underpad. Dressing reinforced with sterile 4x4 gauze and taped. No further bleeding observed. Dr. Henning notified and in to see patient.
Next H&H ordered for 22:00. Pt trialed on room air, SaO2 92%. 2L NC reapplied, SaO2 96%. Deep breathing encouraged. Incentive spirometer use witnessed. Pt stating 2/10 abdominal pain. PRN Tylenol administered. Hypoactive bowel sounds. Pt denying
nausea. New order to remain Clear Liquid diet and upgrade to regular diet for breakfast tomorrow given by Dr. Henning.
--- NOTE | 2024-01-24 20:00 | PTCARENOTE ---
Received pt. at 1900. Pt. currently in bed. Awake, alert, and oriented. Complains of mild pain, PRN medication, see MAR. Afebrile. Heart rhythm sinus. BP normotensive. Currently on 2L nasal cannula. Pt. using incentive spirometer. Clear liquid diet
ordered. Casarez catheter in place, draining without issue. Skin as documented. ZAID drain site noted to have drainage around site. Dressing changed. Repeat H+H to be drawn around 10pm. Discussed plan of care with patient. Vital signs stable at this
time.
[2024-01-25] VITALS (17 sets, daily range): BP systolic 140–174; BP diastolic 73–93; BMI 26.8
[2024-01-25] MEDS: APRESOLINE 10 MG IV (00:19)
[2024-01-25] MEDS: MORPHINE SULFATE 1 MG IV ×4 (00:26→22:06)
--- NOTE | 2024-01-25 00:30 | PTCARENOTE ---
Blood pressure elevated. IV Hydralazine given. PRN pain medication also given, see MAR. ZAID drain site dry and intact. Abdominal incision intact, no drainage.
[2024-01-25 04:23] LABS: % Basophils 0.1 % (0-2); % Immature Granulocytes 0.7 % (0-0.5); % Lymphocytes 13.1 % (20.5-51.1); % Monocytes 13.1 % (1.7-9.3); Absolute Eosinophils 0.2 10^3/uL (0-0.7); Absolute Immature Granulocytes 0.1 10^3/uL (0-0.05); Absolute Lymphocytes 1.9 10^3/uL (1.2-3.4); Absolute Monocytes 1.9 10^3/uL (0.1-0.6); Absolute Neutrophils 10.7 10^3/uL (1.4-6.5); Mean Corp Hgb Conc. 36.4 g/dL (33.0-37.0); Mean Corpuscular Hgb 29.4 pg (27.0-31.0); Mean Corpuscular Volume 80.9 fL (80.0-94.0); Nucleated Red Blood Cells % 0 % (-); Platelet Count 228 10^3/uL (130-400); Red Blood Cell Count 2.72 10^6/uL (4.70-6.10); Red Cell Dist. Width 14.1 % (11.5-14.5); White Blood Cell Count 14.9 10^3/uL (4.8-10.8)
--- NOTE | 2024-01-25 04:30 | PTCARENOTE ---
Assessment remains unchanged. Trending hemoglobin. AM labs drawn.
[2024-01-25 04:47] LABS: ALT (SGPT) 24 U/L (0-50); AST (SGOT) 31 U/L (17-59); Albumin 2.4 g/dl (3.5-5.0); Alkaline Phosphatase 47 U/L (38-126); Blood Urea Nitrogen 12 mg/dl (9-20); Calcium 7.7 mg/dl (8.4-10.2); Carbon Dioxide 28 mmol/L (22-30); Chloride 99 mmol/L (98-107); Estimated Creatinine Clearance > 125 ml/min; Glucose 101 mg/dl (70-99); Phosphorus 2.1 mg/dl (2.5-4.5); Potassium 4.1 mmol/L (3.5-5.1); Sodium 125 mmol/L (135-145); Total Protein 4.5 g/dl (6.3-8.2); eGFR > 60.00
[2024-01-25] MEDS: TYLENOL 650 MG PO ×2 (05:13→13:51)
--- NOTE | 2024-01-25 07:15 | W.PN.INTV ---
Today's Communication / Plan
Recommendations
Out of bed to chair, ambulate
Follow hemoglobin
EKG now normal
Pain control, IS
Advance diet per urology
Hope for transfer to 2S later today if remains stable
Assessment
-
64-year-old male with history of hypertension status post robotic prostatectomy 01/22/24, complicated by hypotension, anemia requiring transfusion, shortness of breath. Imaging suggest large left sided pelvic wall hematoma. Patient transferred to
ICU 01/24/24
Hypotension, secondary to bleeding
Improved with IV fluids, transfusion
Postoperative anemia, hemoglobin 7.2
s/p 3U tx
Pelvic wall hematoma per imaging
s/p evacuation in OR 01/24/24
S/p robotic prostatectomy 01/22/24
Mild leukocytosis
Abnormal EKG
Nonspecific T wave changes, inferior Q-wave lead III
Conditions present prior to admission
Hypertension
Distant tobacco history
Plan/recommendation
At this time, patient overall stable
Still complaining of abdominal discomfort but improved, ZAID drainage improved
Status post 4 units of blood, hemoglobin stable at 8
Evacuation of hematoma noted in OR 01/23. Reviewed urology
Heartburn symptoms/indigestion has resolved
Moving forward
Continue IV fluids
Follow hemoglobin
Denies any shortness of breath at this time
pain control, IS
patient denies any prior cardiac history. Presently without chest pain, GERD symptoms, nausea
EKG with Q waves. Interestingly, these Q waves have since resolved on repeat EKG this morning
Follow
Out of bed to chair, ambulate
Advance diet per urology
Chest x-ray 01/22 with decreased lung volumes, bibasilar atelectasis
Reviewed with critical care nursing, patient, urology
Possible transfer to [facility] later p.m.
Subjective Dataa
Subjective Data
Date of Service:
Date of Service: January 25, 2024
Subjective:
Patient still having 5/10 abdominal discomfort but overall does feel better. ZAID drain seems to be improved. Denies nausea, chest pain. He has some mild shortness of breath but this improved with deep breathing and cough. Denies hemoptysis
Objective Data
Data Reviewed
Vital Signs / I&O / Oxygen:
Vital Signs
Temp Pulse Resp BP Pulse Ox
98.5 F 79 21 145/77 97
01/25/24 04:00 01/25/24 06:00 01/25/24 06:00 01/25/24 06:00 01/25/24 06:00
Intake and Output
01/24/24 01/25/24 01/26/24
06:59 06:59 06:59
Intake Total 1979 / 1979 215 / 215
Output Total 2324 / 2325 2049
Balance -345 / -345 100 / 100
SaO2 97
Nasal Cannula flow liters per 2
minute
Physical Exam
General: Comfortable
HEENT: Normocephalic and Anicteric
Cardiovascular: S1-S2, Regular Rhythm, Murmur (n), Peripheral Edema (n) and Other (Sequentials in place)
Respiratory: Wheeze (n), Crackles (n), Rhonchi (n) and Non-Labored Respirations
GI: Soft, Distended (Less distended), Tender (Mild, no rebound) and Other (ZAID drain in place, left upper abdomen with dressing)
Neurology: Awake, Alert, Oriented and No Motor Deficits (Moves all extremities)
Skin: Cyanosis (n), Jaundice (n) and Rash (n)
Labs/Micro/Reports
Lab Data
01/25/24 04:11
01/25/24 04:12
[2024-01-25] MEDS: COLACE 100 MG PO ×2 (07:59→15:16)
[2024-01-25] MEDS: FLUSH (NSS) 1 FLUSH IV (08:00)
[2024-01-25] MEDS: CYKLOKAPRON 1300 MG PO ×3 (08:00→22:00)
[2024-01-25] MEDS: POLYSPORIN/DOUBLE ANTIBIOTIC 1 APPLIC TOPICAL ×2 (08:00→20:37)
[2024-01-25] MEDS: LEXAPRO 10 MG PO (08:00)
--- NOTE | 2024-01-25 08:15 | W.PN.URO.CBU ---
Today's Communication / Plan
-
- OOB to chair this AM and ambulate
- Regular diet for breakfast (as tolerated)
- Aggressive IS, wean O2
- Trend H/H
- Consider transfer to 2S (post-op floor) w/n 24 hrs
D/w patient.
D/w RN.
D/w spouse and daughters.
D/w Dr. Pryor.
Assessment / Plan
-
Intermediate risk prostate cancer
Intraperitoneal bleeding
Acute blood loss anemia
01/21: s/p RARP/BPLND
01/23: s/p ex-lap, hematoma evacuation, stoppage of bleeding source (left obturator fossa)
HDS and clinically improving
Post-op hypotension resolved - mildly hypertensive this AM
No longer requiring IVF/pRBCs since 01/23
Excellent UOP per Casarez catheter
Hgb stable postop: 8.4 => 8.0 => 8.0
Diagnosis
-
Date of Service: January 25, 2024
-
Patient Diagnosis:
Prostate cancer
Intraperitoneal bleeding
Acute blood loss anemia
Post Op Day:
01/21: s/p RARP/BPLND
01/23: s/p ex-lap, hematoma evacuation, stoppage of bleeding source (left obturator fossa)
Subjective
-
Feels dramatically better.
Ordered breakfast this AM.
Pain mild to moderate o/n - well-controlled.
Denies flatus since surgery yesterday.
Small belch this AM - denies N/V.
Objective
-
Vital Signs
Temp Pulse Resp BP Pulse Ox
99.4 F 83 25 162/93 95
01/25/24 08:11 01/25/24 09:00 01/25/24 09:00 01/25/24 09:00 01/25/24 09:00
Intake and Output
01/24/24 01/25/24 01/26/24
06:59 06:59 06:59
Intake Total 1979 / 1979 2149 / 2149 100 / 100
Output Total 2324 / 2324 200 / 200
Balance -345 / -345 100 / 100 -100 / -100
Intake:
Oral fluids 480 / 480 900 / 900 100 / 100
IV fluids (Total) 1000 / 1000 1000 / 1000
Nss 1,000 ml @ UD IV .Q0M ONE 1000 / 1000
Rx#:[id number]
normosol 1000 / 1000
Blood Product Amount Infused ( 500 / 500 250 / 250
mL)
Packed Rbc Leukoreduced Unit 250 / 250
[id number]
Packed Rbc Leukoreduced Unit 250 / 250
[id number]
Packed Rbc Leukoreduced Unit 0 / 0 250 / 250
[id number]
Output:
Drain Output (Total)
Left Abdomen Zach-Adams
Urine, Casarez 2324 / 5 1964 200 / 200
Laboratory Results
01/25/24 04:11
01/25/24 04:12
Physical Exam
-
General - well developed, well nourished, no acute distress
Chest - on 2L O2 NC (97%)
Abdomen - soft, appropriately tender, Opsite dressing in midline w/o strikethrough, LLQ drain w/ minimal serosanguinous output
Genitalia - normal, Casarez catheter in place w/ clear yellow UOP
Skin - warm & dry with no rash
Neuro - AOx3, no motor deficits
Extremities - no clubbing, no cyanosis, no edema
--- NOTE | 2024-01-25 09:00 | PTCARENOTE ---
Rec'd pt at 0800 aweke alert and oriented resting in bed. Overall states he feels ok- just states he did not get a lot of sleep last night. Admits to 5/10 abd discomfort. Medicated at 0800 with Morphine 1 mg IV as BP is also elevated. Denies
dizziness or headache. Skin is pale pink wm and dry. Respirs are unlabored on 2l nc with sats of 95%. BS are sl decreased at the bases. Encouraged to do IS and getting about 1200 mls. Monitor SR with border 1st'avb. + pulses. No edema. ROSANA
stockings in place and scds. VS as documented. Abd is soft by tender with + BS. Midline abd incision dressing is D+I. LLQ ZAID drain with small amts of serosang drainage to bulb suction. Dressing is D+I. Pt with lower epigastric/upper abd stab wounds
with nasrin intact-open to air. Pt states he is passing flatus. Casarez intact for yellow urine. Capped ints intact Rac, R forearm and L Forearm. Pt repositioned. Casarez care given. Plan of care reviewed with pt and call miles in reach.
--- NOTE | 2024-01-25 09:00 | PTCARENOTE ---
Additional assessment- pt with extensive bruising/ecchymosis-purpilish/red that remains on his R flank and into scrotum.
[2024-01-25] MEDS: NSS 1000 IV (10:00)
[2024-01-25] MEDS: ZESTRIL 40 MG PO (10:20)
--- NOTE | 2024-01-25 10:30 | PTCARENOTE ---
Pt resting post Morphine- stated it brought the abd discomfort to a 1. Does admit to passing flatus. NSS hung via L forearm IV site at 80 ml/hr per MD order. Urine and blood studies sent. Casarez with yellow urine. Complete CHG bath given. Pt shaved.
Pt currently assisted with assist of 1 oob to the chair. Gait is sl weak but steady. States he feels pretty good sitting up. Call miles in reach. Will moniter. in to see pt.
[2024-01-25 11:01] LABS: Urine Sodium 121 mmol/L (30-90)
[2024-01-25 11:04] LABS: Osmolality Serum 265 mOsm/kg (275-300)
[2024-01-25 11:05] LABS: Osmolality Urine 552 mOsm/kg (300-900)
--- NOTE | 2024-01-25 11:58 | W.PN.UPDATE ---
Addendum entered and electronically signed by Tamia Pryor MD 01/25/24 12:06:
Patient also on TXA 3 times daily
Will defer this to urology. Unclear whether still needed
Original Note:
Update Note
Progress Note Update
Patient sitting in chair, feels much better. Passing gas
Tolerated eggs, muffin, pancake without difficulty.
On room air, 94%
Rates abdominal discomfort 10/23
Continue with current management. IV fluids noted. Follow sodium
Pain control
Repeat hemoglobin in the p.m.
Okay for transfer to surgical floor per discussion with urology earlier this morning
Reviewed with consulting hospitalist, and critical care nursing
[2024-01-25] MEDS: COLACE PO (12:00)
--- NOTE | 2024-01-25 13:30 | W.PN.HOSP.TC ---
Today's Communication/Plan
-
Monitor vital signs see plan
Check urine and serum studies
Fluid restriction
DC further fluids
Restart lisinopril
Continue to hold HCTZ given hyponatremia
Okay to transfer to the floors if okay with urology
Repeat sodium
Monitor hemoglobin
Assessment / Plan
Assessment / Plan
Physical Exam
General: Well Developed, Well Nourished and No Apparent Distress
HEENT: Normocephalic and Atraumatic
Respiratory: Clear to Auscultation; Negative Wheezes or Rhonchi
Cardiac: Regular Rhythm and S1/S2; Negative Murmur
GI: Soft, Nontender, Nondistended and Normal Bowel Sounds
Genito-urinary: Casarez
Musculoskeletal: No Clubbing, No Cyanosis and No Edema
Neuro: Awake and Alert
Psych: Calm
Assessment/Plan
[id number] Den[address] Anderson � consult from urology � 64 yo male had robotic prostatectomy for prostate cancer and developed postoperative hypotension--significantly volume resuscitated with large amounts of IV fluids--was placed in IMU but did not need
pressors--patient was still orthostatic--hemoglobin did drop to 7.3--4 units TOTAL packed red blood cells transfused--follow numbers and orthostatics �estimated blood loss from the surgery was only 75 mL--CT without any PE, small to moderate
bilateral pleural effusion.--patient also hyponatremic but was felt this was from significant IV fluids--IV fluids were stopped on January 24, 2024 in favor of blood transfusion--if still low may consider nephrology consult

Pt is a 64 year old male
Recent robotic prostatectomy for prostate cancer and developed postoperative hypotension. Persistent post-op intraperitoneal bleeding -- status post ex-lap, hematoma evacuation, stoppage of bleeding by urology on January 25, 2024. Now appears to
have stable hemoglobin
Abdomen/pelvis CT with large left pelvic sidewall hematoma, pneumoperitoneum
TXA per urology
post op hypotension--RESOLVED--suspect all due to anesthesia, poor PO intake pre surgery, colon prep--never needed pressors--not believed to be sepsis, improper cuff size, recent steroid use, etc
Acute hyponatremia
Urine and serum studies noted, DC further fluids
Start fluid restriction
Repeat sodium later today
Monitor, if does not improve then will get nephrology evaluation
Q Waves in one lead on EKGs -- patient asymptomatic (with regards to an ACS process); Dr. Barcenas discussed with Dr. Pryor on January 24, 2024 -- and cardiology did not seem concerned so monitor for now
Acute anemia--likely acute 'loss' from hematoma and some dilutional--01/23: s/p ex-lap, hematoma evacuation, stoppage of bleeding source (left obturator fossa)
Cannot rule out chronic anemia is unknown baseline/normal hemoglobin is from 2008
essential HTN--initially was hypotensive so was holding BP meds, now started lisinopril. Continue to hold HCTZ in the setting of hyponatremia
HLD--diet controlled
prostate cancer--post op robotic--care per urology
anxiety/depression-
DVT proph
SCD's
code status -- FULL CODE
Anticipated Discharge: > 48 hours
Subjective/Interval History
-
Date of Service: January 25, 2024
denies pain
Objective Data
-
Labs:
Laboratory Results
01/25/24 01/25/24
04:11 04:12
WBC 14.9 H
Hgb 8.0 L
Hct 22.0 L
Plt Count 228
Sodium 125 L
Potassium 4.1
Chloride 99
Carbon Dioxide 28
BUN 12
Creatinine 0.6 L
Glucose 101 H
Calcium 7.7 L
Total Bilirubin 1.0
AST 31
ALT 24
Alkaline Phosphatase 47
Vital Signs:
Vital Signs
Temp Pulse Resp BP Pulse Ox
98.5 F 77 22 147/80 94
01/25/24 12:12 01/25/24 12:00 01/25/24 12:00 01/25/24 12:00 01/25/24 12:00
I&O
01/24/24 01/25/24 01/26/24
06:59 06:59 06:59
Intake Total 1979 / 1979 2150 / 2149 970 / 970
Output Total 5 / 2325 2049 600 / 600
Balance -345 / -345 100 / 100 370 / 370
--- NOTE | 2024-01-25 14:03 | PTCARENOTE ---
Limited appetite for lunch. Overall states he is not overly hungry. updated on labs from earlier and per MD order IV fluids dc'd and pt placed on a 48oz fluid restriction. Pt and aware. Medicated at 1351 with Tylenol 650 mg po for c/o
11/23 abd achiness. Report called to [address] [place] [id number]-[facility] transfer pt via wheelchair.
--- NOTE | 2024-01-25 14:58 | PTCARENOTE ---
Pt transferred via wheelchair to [facility] 2111. No changes
--- NOTE | 2024-01-25 15:27 | PTCARENOTE ---
Pt received from ICU. AAOx3. Assist of 1 from wheelchair to bed. NSR on ekg monitor tech. HR 80s. R flank ecchymotic with noted edema. L abdominal ZAID drain with serosanguineous fluid. Dressing CDI. Midline abdominal dressing CDI. Scattered lap sites
closed with nasrin, REMOTE CODERS. Casarez draining clear, yellow urine. Pt without complaint at this time. Plan to recheck sodium this afternoon. Will continue to monitor hgb. Assessment documented. Family members at bedside.
[2024-01-25 15:34] LABS: Sodium 125 mmol/L (135-145)
[2024-01-25 20:53] LABS: Blood Urea Nitrogen 13 mg/dl (9-20); Calcium 7.8 mg/dl (8.4-10.2); Carbon Dioxide 29 mmol/L (22-30); Chloride 96 mmol/L (98-107); Estimated Creatinine Clearance > 125 ml/min; Glucose 109 mg/dl (70-99); Sodium 124 mmol/L (135-145); eGFR > 60.00
[2024-01-26] VITALS (11 sets, daily range): BP systolic 142–166; BP diastolic 78–99; PULSE 86–95
[2024-01-26] MEDS: MORPHINE SULFATE 1 MG IV (02:42)
[2024-01-26] MEDS: VALIUM INJECTION 5 MG IV ×2 (02:42→23:03)
[2024-01-26 05:37] LABS: % Basophils 0.2 % (0-2); % Eosinophils 3.8 % (0-6); % Immature Granulocytes 0.9 % (0-0.5); % Lymphocytes 18.4 % (20.5-51.1); % Monocytes 10.8 % (1.7-9.3); % Neutrophils 65.9 % (42.2-75.2); Absolute Eosinophils 0.5 10^3/uL (0-0.7); Absolute Immature Granulocytes 0.1 10^3/uL (0-0.05); Absolute Lymphocytes 2.2 10^3/uL (1.2-3.4); Absolute Monocytes 1.3 10^3/uL (0.1-0.6); Absolute Neutrophils 7.9 10^3/uL (1.4-6.5); Hemoglobin 7.2 g/dL (13.0-18.0); Mean Corp Hgb Conc. 35.3 g/dL (33.0-37.0); Mean Corpuscular Volume 82.3 fL (80.0-94.0); Mean Platelet Volume 8.9 fL (7.4-10.4); Nucleated Red Blood Cells % 0 % (-); Platelet Count 303 10^3/uL (130-400); Red Blood Cell Count 2.48 10^6/uL (4.70-6.10); Red Cell Dist. Width 14.2 % (11.5-14.5)
[2024-01-26 05:40] LABS: Hematocrit 20.4 % (39.0-52.0)
[2024-01-26 06:05] LABS: Blood Urea Nitrogen 11 mg/dl (9-20); Calcium 7.9 mg/dl (8.4-10.2); Carbon Dioxide 27 mmol/L (22-30); Chloride 99 mmol/L (98-107); Estimated Creatinine Clearance > 125 ml/min; Glucose 94 mg/dl (70-99); Sodium 127 mmol/L (135-145); eGFR > 60.00
--- NOTE | 2024-01-26 08:15 | W.PN.URO.CBU ---
Addendum entered and electronically signed by Celio Henning MD 01/26/24 16:44:
Repeat CBC s/p 1u pRBC => 8.7 (7.2 pre)
Original Note:
Today's Communication / Plan
-
pRBC x1 given this AM
OOB and ambulating today
Continue IS for post-op atelectasis
Regular diet, 48 oz fluid restriction
Surgical dressings removed
Assessment / Plan
-
Intermediate risk prostate cancer
Intraperitoneal bleeding
Acute blood loss anemia
Hyponatremia
01/21: s/p RARP/BPLND
01/23: s/p ex-lap, hematoma evacuation, stoppage of bleeding source (left obturator fossa)
Clinically improving post-op
HDS x48 hrs
Excellent UOP per Casarez catheter
Minimal SSF drainage from left pelvic drain
Hgb postop: 8.4 => 8.0 => 8.0 => 7.2
Hyponatremia - improving
Diagnosis
-
Date of Service: January 26, 2024
-
Patient Diagnosis:
Prostate cancer
Intraperitoneal bleeding
Acute blood loss anemia
Post Op Day:
01/21: s/p RARP/BPLND
01/23: s/p ex-lap, hematoma evacuation, stoppage of bleeding source (left obturator fossa)
Subjective
-
Had first night of 'good sleep.'
Tolerating diet.
Passing significant flatus since yesterday afternoon.
Denies N/V.
Objective
-
Vital Signs
Temp Pulse Resp BP Pulse Ox
98.1 F 82 18 144/86 92
01/26/24 07:55 01/26/24 07:55 04/14/24 07:55 01/26/24 07:55 01/26/24 07:55
Intake and Output
01/25/24 01/26/24 01/27/24
06:59 06:59 06:59
Intake Total 2150 / 2150 1390 / 1390
Output Total 2049 / 2049 3090 / 3090
Balance 100 / 100 -1700 / -1700
Intake:
Oral fluids 900 / 900 990 / 990
IV fluids (Total) 1000 / 1000 400 / 400
Nss 1,000 ml @ 80 mls/hr IV . 400 / 400
[id number] DAVIE Rx#:[id number]
normosol 1000 / 1000
Blood Product Amount Infused ( 250 / 250 0 / 0
mL)
Packed Rbc Leukoreduced Unit 0 / 0
[id number]
Packed Rbc Leukoreduced Unit 250 / 250
[id number]
Output:
Drain Output (Total)
Left Abdomen Zach-Adams
Urine, Casarez 1962 / 1964 3075 / 3075
Laboratory Results
01/26/24 05:21
Physical Exam
-
General - well developed, well nourished, no acute distress
Abdomen - soft, appropriately tender, infraumbilical incision c/d/i, LLQ drain w/ minimal serosanguinous output
Genitalia - normal, Casarez catheter w/ clear yellow UOP
Skin - warm & dry with no rash
Neuro - AOx3, no motor deficits
Extremities - no clubbing, no cyanosis, no edema
Care Review
Data Reviewed
Discussed with: Hospitalist, Nursing and Family
CT Scan: Report Pers Reviewed and Image Pers Reviewed
Total Time Spent with Patient (in minutes): 45
[2024-01-26] MEDS: COLACE 100 MG PO ×2 (09:15→11:46)
[2024-01-26] MEDS: CYKLOKAPRON 1300 MG PO ×3 (09:15→22:42)
[2024-01-26] MEDS: LEXAPRO 10 MG PO (09:15)
[2024-01-26] MEDS: ZESTRIL 40 MG PO (09:15)
[2024-01-26] MEDS: POLYSPORIN/DOUBLE ANTIBIOTIC 1 APPLIC TOPICAL ×2 (09:16→20:43)
--- NOTE | 2024-01-26 10:59 | W.PN.HOSP.TC ---
Addendum entered and electronically signed by Nic Kaplan MD 01/26/24 11:31:
Blood pressure now running high, would not restart HCTZ due to hyponatremia. Will start amlodipine
Original Note:
Today's Communication/Plan
-
Monitor vitals
See plan
Continue with fluid restriction, repeat sodium later today
1 unit PRBC today, continue to monitor
Assessment / Plan
Assessment / Plan
Physical Exam
General: Well Developed, Well Nourished and No Apparent Distress
HEENT: Normocephalic and Atraumatic
Respiratory: Clear to Auscultation; Negative Wheezes or Rhonchi
Cardiac: Regular Rhythm and S1/S2; Negative Murmur
GI: Soft, Nontender, Nondistended and Normal Bowel Sounds
Genito-urinary: Casarez
Musculoskeletal: No Clubbing, No Cyanosis and No Edema
Neuro: Awake and Alert
Psych: Calm
Assessment/Plan
Pt is a 64 year old male
Recent robotic prostatectomy for prostate cancer and developed postoperative hypotension. Persistent post-op intraperitoneal bleeding -- status post ex-lap, hematoma evacuation, stoppage of bleeding by urology on January 25, 2024. Now appears to
have stable hemoglobin
Abdomen/pelvis CT with large left pelvic sidewall hematoma, pneumoperitoneum
TXA per urology
post op hypotension--RESOLVED--suspect all due to anesthesia, poor PO intake pre surgery, colon prep--never needed pressors--not believed to be sepsis, improper cuff size, recent steroid use, etc
Acute hyponatremia
Urine and serum studies noted, DC further fluids
Start fluid restriction
Sodium slowly improving, now 127. Repeat later today
Monitor, if does not improve then will get nephrology evaluation
Q Waves in one lead on EKGs -- patient asymptomatic (with regards to an ACS process); Dr. Barcenas discussed with Dr. Pryor on January 24, 2024 -- and cardiology did not seem concerned so monitor for now
Acute anemia--likely acute 'loss' from hematoma and some dilutional--: s/p ex-lap, hematoma evacuation, stoppage of bleeding source (left obturator fossa)
hgb 7.2 today; ordered 1 unit PRBC. Repeat later today
Cannot rule out chronic anemia is unknown baseline/normal hemoglobin is from 2008
essential HTN--initially was hypotensive so was holding BP meds, now started lisinopril. Continue to hold HCTZ in the setting of hyponatremia
HLD--diet controlled
prostate cancer--post op robotic--care per urology
anxiety/depression-
DVT proph
SCD's
code status -- FULL CODE
Anticipated Discharge: 24 - 48 hours
Subjective/Interval History
-
Date of Service: January 26, 2024
denies pain
Objective Data
-
Labs:
Laboratory Results
01/26/24 01/26/24
05:21 14:00
WBC 12.0 H Pending
Hgb 7.2 L Pending
Hct 20.4 L* Pending
Plt Count 303 D Pending
Sodium 127 L
Potassium 4.0
Chloride 99
Carbon Dioxide 27
BUN 11
Creatinine 0.6 L
Glucose 94
Calcium 7.9 L
Vital Signs:
Vital Signs
Temp Pulse Resp BP Pulse Ox
98.4 F 79 18 162/93 92
01/26/24 09:29 01/26/24 09:29 01/26/24 09:29 01/26/24 09:29 01/26/24 07:55
I&O
01/25/24 01/26/24 01/27/24
06:59 06:59 06:59
Intake Total 0 / 0 1390 / 1390 250 / 250
Output Total 2049 3090 / 3090
Balance 100 / 100 -1700 / -1700 250 / 250
[2024-01-26] MEDS: NORVASC 5 MG PO (11:46)
[2024-01-26 13:32] LABS: Hematocrit 23.9 % (39.0-52.0); Mean Corp Hgb Conc. 36.4 g/dL (33.0-37.0); Mean Corpuscular Hgb 29.7 pg (27.0-31.0); Mean Corpuscular Volume 81.6 fL (80.0-94.0); Mean Platelet Volume 8.9 fL (7.4-10.4); Platelet Count 369 10^3/uL (130-400); Red Blood Cell Count 2.93 10^6/uL (4.70-6.10); Red Cell Dist. Width 14.1 % (11.5-14.5); White Blood Cell Count 10.6 10^3/uL (4.8-10.8)
[2024-01-26 13:33] LABS: Hemoglobin 8.7 g/dL (13.0-18.0)
[2024-01-26] MEDS: COLACE PO (16:42)
[2024-01-26 20:27] LABS: Sodium 128 mmol/L (135-145)
--- NOTE | 2024-01-26 20:45 | PTCARENOTE ---
Sodium level 128, previous level 127; Dr. Kaplan's noted previously slowly improving, will monitor, and if not improving then will get Nephrology evaluation; level continued to slowly improve, will give detailed report to dayshift RN.
[2024-01-27] VITALS (7 sets, daily range): BP systolic 132–158; BP diastolic 51–88; PULSE 75; O2SAT 96
--- NOTE | 2024-01-27 06:29 | W.PN.HOSP.TC ---
Today's Communication/Plan
-
blood pressure control
monitor H&H
discharge planning home health services
Assessment / Plan
Assessment / Plan
Physical Exam
General: Well Developed, Well Nourished and No Apparent Distress
HEENT: Normocephalic and Atraumatic
Respiratory: Clear to Auscultation; Negative Wheezes or Rhonchi
Cardiac: Regular Rhythm and S1/S2; Negative Murmur
GI: Soft, Nontender, Nondistended and Normal Bowel Sounds
Genito-urinary: Casarez
Musculoskeletal: No Clubbing, No Cyanosis and No Edema
Neuro: Awake and Alert
Psych: Calm
Assessment/Plan
Pt is a 64 year old male
Recent robotic prostatectomy for prostate cancer and developed postoperative hypotension. Persistent post-op intraperitoneal bleeding -- status post ex-lap, hematoma evacuation, stoppage of bleeding by urology on January 25, 2024. Now appears to
have stable hemoglobin
Abdomen/pelvis CT with large left pelvic sidewall hematoma, pneumoperitoneum
TXA per urology
post op hypotension--RESOLVED--suspect all due to anesthesia, poor PO intake pre surgery, colon prep--never needed pressors--not believed to be sepsis, improper cuff size, recent steroid use, etc
Acute hyponatremia
Urine and serum studies noted, DC further fluids
Start fluid restriction
Sodium slowly improving, now 127. Repeat later today
Monitor, if does not improve then will get nephrology evaluation
Q Waves in one lead on EKGs -- patient asymptomatic (with regards to an ACS process); Dr. Barcenas discussed with Dr. Pryor on January 24, 2024 -- and cardiology did not seem concerned so monitor for now
Acute anemia--likely acute 'loss' from hematoma and some dilutional--: s/p ex-lap, hematoma evacuation, stoppage of bleeding source (left obturator fossa)
hgb 7.2 received 1 unit PRBC with subsequent improvement
Slight downtrend noted following improvement however
Hematology Eval Appreciated
follow up AM coag panel, iron studies, B12
essential HTN--initially hypotensive, initial hold BP meds, lisinopril since resumed. Continue to hold HCTZ in the setting of hyponatremia. Amlodipine added to antihypertensive regimen
HLD--diet controlled
prostate cancer--post op robotic--care per urology
anxiety/depression- cont home lexapro
DVT proph
SCD's
code status -- FULL CODE
discussed with patient and his Amanda bedside
I spent a total of 50 minutes with the patient or on the floor. More than 50% of this time involved counseling and coordination of care.
Anticipated Discharge: Within 24 hours
Subjective/Interval History
-
Date of Service: January 27, 2024
No acute distress. Rupal present during evaluation. Reports ambulating without issues. Occasional Gas discomfort but tolerable, declines offered prn simethicone. Overall reports feeling well.
Objective Data
-
Labs:
Laboratory Results
01/26/24 01/27/24
20:11 05:22
WBC Pending
Hgb Pending
Hct Pending
Plt Count Pending
Sodium 128 L Pending
Potassium Pending
Chloride Pending
Carbon Dioxide Pending
BUN Pending
Creatinine Pending
Glucose Pending
Calcium Pending
Vital Signs:
Vital Signs
Temp Pulse Resp BP Pulse Ox
73 F L 73 18 158/88 94
01/27/24 04:30 01/27/24 04:30 01/27/24 04:30 01/27/24 04:30 01/27/24 04:30
I&O
01/25/24 01/26/24 01/27/24
06:59 06:59 06:59
Intake Total 2150 / 2150 1390 / 1390 1670 / 1670
Output Total 2049 3090 / 3090 5252 / 5252
Balance 100 / 100 -1700 / -1700 -3582 / -3582
[2024-01-27 06:36] LABS: % Basophils 0.3 % (0-2); % Eosinophils 6.2 % (0-6); % Immature Granulocytes 1.1 % (0-0.5); % Lymphocytes 19.9 % (20.5-51.1); % Monocytes 12.9 % (1.7-9.3); % Neutrophils 59.6 % (42.2-75.2); Absolute Eosinophils 0.6 10^3/uL (0-0.7); Absolute Immature Granulocytes 0.1 10^3/uL (0-0.05); Absolute Monocytes 1.3 10^3/uL (0.1-0.6); Absolute Neutrophils 5.9 10^3/uL (1.4-6.5); Hematocrit 24.6 % (39.0-52.0); Hemoglobin 8.4 g/dL (13.0-18.0); Mean Corp Hgb Conc. 34.1 g/dL (33.0-37.0); Mean Corpuscular Hgb 28.9 pg (27.0-31.0); Mean Corpuscular Volume 84.5 fL (80.0-94.0); Nucleated Red Blood Cells % 0.2 % (-); Platelet Count 420 10^3/uL (130-400); Red Blood Cell Count 2.91 10^6/uL (4.70-6.10); Red Cell Dist. Width 14.6 % (11.5-14.5); White Blood Cell Count 9.8 10^3/uL (4.8-10.8)
--- NOTE | 2024-01-27 06:47 | W.PN.URO.CBU ---
Today's Communication / Plan
-
awaiting morning H&H
if stable, discharge
if significant drop, will consult hematology to evaluate for coagulopathy
Assessment / Plan
-
Intermediate risk prostate cancer
Intraperitoneal bleeding
Acute blood loss anemia
Hyponatremia
01/21: s/p RARP/BPLND
01/23: s/p ex-lap, hematoma evacuation, stoppage of bleeding source (left obturator fossa)
Clinically improving post-op
HD stable
Excellent UOP per Casarez catheter
Minimal SSF drainage from left pelvic drain
Diagnosis
-
Date of Service: January 27, 2024
-
Patient Diagnosis:
Prostate cancer
Intraperitoneal bleeding
Acute blood loss anemia
Post Op:
01/21: s/p RARP/BPLND
01/23: s/p ex-lap, hematoma evacuation, stoppage of bleeding source (left obturator fossa)
Subjective
-
feeling better
eating
active bowel fxn
ambulating
Objective
-
Vital Signs
Temp Pulse Resp BP Pulse Ox
73 F L 73 18 158/88 94
01/27/24 04:30 01/27/24 04:30 01/27/24 04:30 01/27/24 04:30 01/27/24 04:30
Intake and Output
01/25/24 01/26/24 01/27/24
06:59 06:59 06:59
Intake Total 2150 / 2150 1390 / 1390 1670 / 1670
Output Total 2049 3090 / 3090 5252 / 5252
Balance 100 / 100 -1700 / -1700 -3582 / -3582
Intake:
Oral fluids 900 / 900 990 / 990 1420 / 1420
IV fluids (Total) 1000 / 1000 400 / 400
Nss 1,000 ml @ 80 mls/hr IV . 400 / 400
[id number] [facility] Rx#:[id number]
normosol 1000 / 1000
Blood Product Amount Infused ( 250 / 250 0 / 0 250 / 250
mL)
Packed Rbc Leukoreduced Unit 0 / 0 250 / 250
[id number]
Packed Rbc Leukoreduced Unit 250 / 250
[id number]
Output:
Drain Output (Total)
Left Abdomen Zach-Adams
Urine, Casarez 1962 / 1962 3075 / 3075 5250 / 5250
AM labs - pending
Physical Exam
-
General - well developed, well nourished, no acute distress
Chest - clear bilaterally
Abdomen - soft, no distention; Left-sided Eze drain: thin serous fluid --> removed
Genitalia - Casarez: yellow urine
Skin - warm & dry with no rash
Neuro - AOx3, no motor deficits
Extremities - no clubbing, no cyanosis, no edema
Incision - clean, dry, stapled; some excoriation due to adhesive dressings
[2024-01-27 07:04] LABS: Blood Urea Nitrogen 12 mg/dl (9-20); Calcium 8.3 mg/dl (8.4-10.2); Carbon Dioxide 28 mmol/L (22-30); Chloride 98 mmol/L (98-107); Estimated Creatinine Clearance > 125 ml/min; Glucose 90 mg/dl (70-99); Potassium 4.3 mmol/L (3.5-5.1); Sodium 133 mmol/L (135-145); eGFR > 60.00
--- NOTE | 2024-01-27 07:58 | W.PN.UPDATE ---
Update Note
Progress Note Update
H&H within safe range and HD stable, yet former is slightly lower than last evening's
will enlist Hematology to investigate possible coagulopathy
[2024-01-27] MEDS: NORVASC 5 MG PO (08:15)
[2024-01-27] MEDS: COLACE 100 MG PO ×2 (08:15→14:41)
[2024-01-27] MEDS: ZESTRIL 40 MG PO (08:15)
[2024-01-27] MEDS: POLYSPORIN/DOUBLE ANTIBIOTIC 1 APPLIC TOPICAL ×2 (08:16→21:35)
[2024-01-27] MEDS: LEXAPRO 10 MG PO (08:17)
--- NOTE | 2024-01-27 12:21 | CON.ONC ---
Impression
Impression
prostate cancer, s/p prostatectomy 01/22/2024
ABLA/large left pelvic wall hematoma
01/23: s/p ex-lap, hematoma evacuation, stoppage of bleeding source (left obturator fossa)
Plan
Plan
CBC and coags ordered for am
transfuse for Hgb <7.5g/dL or as needed for sxs anemia
discharge planning in progress
Patient History
History of Present Illness
64 yo M with prostate cancer who underwent robotic prostatectomy 01/22/2024 and admitted for post-operative hypotension evaluation and management. Further evaluation notable for acute blood loss anemia for which imaging showed a large left pelvic
wall hematoma that required s/p ex-lap with hematoma evacuation, ICU management, tranexamic acid, and 5units of PRBC support. Pre-operative hgb 11.3g/dL-> 7.3g/dL. Hgb >8g/dL x 2 days, last transfusion yesterday (01/25). 01/24/2024 labs showed no
evidence of DIC with normal INR, PTT, fibrinogen, and PT 15.7. Pre-operative labs showed normal coags and platelet count. Home medications reviewed include fish oil and naproxen which he did not take the 2 week prior to his procedure, he
otherwise denies use of antiplatelet or anticoagulation medications. Denies significant bleeding with prior traumatic injuries, surgeries, or procedures. Denies any family history of bleeding disorders, clotting disorders, or malignancy.
Clinically, denies hematuria or other overt bleeding. Denies fever, chills, cough, sob, moreira, n/v/d/c or abdominal pain. He is OOB with PT.
Afebrile, hypotension resolved, no hypoxia
Past-Medical/Surgical History
PMH HTN, HLD, prostate cancer, anxiety, depression,
Surgical hx robotic prostatectomy, left hydrocelectomy, vasectomy, clavical repair, fibular plate, pins in thum
Social former smoker, weekend etoh use beer/bourbon, denies recreational drugs. Lives with . Works from home, IT
Patient Medication
�Medication �Instructions �Recorded �Confirmed �Last Taken �Type
fish oil-dha-epa 1,200 mg-144 1 ea PO DAILY Supplement 01/10/16 01/22/24 01/08/24 History
mg-216 mg capsule
lisinopril 40 mg tablet (Zestril) 40 mg PO DAILY Blood Pressure 01/10/16 01/22/24 01/21/24 05:00 History
escitalopram oxalate 10 mg tablet 10 mg PO DAILY Mental 01/13/24 01/22/24 01/22/24 05:00 History
(Lexapro) Health/Anxiety
hydrochlorothiazide 25 mg tablet 25 mg PO DAILY Fluid 01/13/24 01/22/24 01/21/24 08:00 History
Retention/Swelling
multivitamin 1 tab PO DAILY Supplement 01/13/24 01/22/24 01/08/24 History
naproxen sodium 220 mg capsule 440 mg (2 x 220 mg) PO BID PRN 01/22/24 Unknown Rx
pain #1 cap
tramadol 50 mg tablet 50 mg PO TID PRN severe pain #10 01/22/24 Unknown Rx
tabs
Active Medications
Generic Name Dose Route Start Last Admin
Trade Name Freq PRN Reason Stop Dose Admin
Acetaminophen 650 mg 01/22/24 07:30 01/25/24 13:51
Acetaminophen 325 Mg Tablet PO 02/19/24 07:29 650 mg
Q4HPRN PRN Administration
mild pain/temp >/= 100
Amlodipine Besylate 5 mg 01/26/24 12:00 01/27/24 08:15
Amlodipine 5 Mg Tablet PO 02/23/24 11:59 5 mg
DAILY DAVIE Administration
Bacitracin/Polymyxin B Sulfate 0 applic 01/22/24 08:00 01/27/24 08:16
Bacitracin/Polymyxin B (Ointment) 15 Gram Tube TOPICAL 1 applic
BID DAVIE Administration
Diazepam 5 mg 01/22/24 07:30 01/26/24 23:03
Diazepam 10 Mg/2 Ml Inj IV 02/19/24 07:29 5 mg
Q4HPRN PRN Administration
retractory bladder spasms
Docusate Sodium 100 mg 01/22/24 16:30 01/27/24 08:15
Docusate Sodium 100 Mg Capsule PO 02/19/24 16:29 100 mg
AC DAVIE Administration
Escitalopram Oxalate 10 mg 01/23/24 08:00 01/27/24 08:17
Escitalopram 10 Mg Tablet PO 02/20/24 07:59 10 mg
DAILY DAVIE Administration
Hydrochlorothiazide 25 mg 01/23/24 08:00 01/24/24 10:45
Hydrochlorothiazide 25 Mg Tablet PO 02/20/24 07:59 Not Given
DAILY DAVIE
Lisinopril 40 mg 01/25/24 10:00 01/27/24 08:15
Lisinopril 20 Mg Tablet PO 02/22/24 09:59 40 mg
DAILY DAVIE Administration
Sodium Chloride 0 flush 01/22/24 17:00 01/25/24 08:00
Sodium Chloride 0.9% (Flush) Syringe IV 02/19/24 16:59 1 flush
PER PROTOCOL DAVIE Administration
Tolterodine Tartrate 4 mg 01/22/24 07:30 01/22/24 12:40
Tolterodine 4 Mg Extended Release Capsule PO 02/19/24 07:29 4 mg
DAILYPRN PRN Administration
bladder spasms
Review of Systems
-
Review of systems notable for HPI, otherwise negative
Physical Exam
-
General: Well Developed, Well Nourished and No Apparent Distress
HEENT: Moist Mucous Membranes; Negative Jaundice
Cardiology: S1 and S2
Pulmonary: Clear
GI: Soft
Genito-Urinary: Clear Urine (mayorga); Negative Costovertebral Angle Tenderness
Musculoskeletal: No Edema
Extremities: Pulses Present
Neurology: Non Focal
Skin: Warm
Psych: Calm
Labs
Lab Results
WBC 9.8 10^3/uL (4.8-10.8) 01/27/24 05:22
RBC 2.91 10^6/uL (4.70-6.10) L 01/27/24 05:22
Hgb 8.4 g/dL (13.0-18.0) L 01/27/24 05:22
Hct 24.6 % (39.0-52.0) L 01/27/24 05:22
MCV 84.5 fL (80.0-94.0) 01/27/24 05:22
MCH 28.9 pg (27.0-31.0) 01/27/24 05:22
MCHC 34.1 g/dL (33.0-37.0) 01/27/24 05:22
RDW 14.6 % (11.5-14.5) H 01/27/24 05:22
Plt Count 420 10^3/uL (130-400) H 01/27/24 05:22
MPV 9.0 fL (7.4-10.4) 01/27/24 05:22
Abs Immat Gran (auto) 0.1 10^3/uL (0-0.05) H 01/27/24 05:22
Absolute Neuts (auto) 5.9 10^3/uL (1.4-6.5) 01/27/24 05:22
Absolute Lymphs (auto) 2.0 10^3/uL (1.2-3.4) 01/27/24 05:22
Absolute Monos (auto) 1.3 10^3/uL (0.1-0.6) H 01/27/24 05:22
Absolute Eos (auto) 0.6 10^3/uL (0-0.7) 01/27/24 05:22
Absolute Basos (auto) 0.0 10^3/uL (0-0.2) 04/15/24 05:22
Immature Gran % 1.1 % (0-0.5) H 01/27/24 05:22
Neutrophils % 59.6 % (42.2-75.2) 01/27/24 05:22
Lymphocytes % 19.9 % (20.5-51.1) L 01/27/24 05:22
Monocytes % 12.9 % (1.7-9.3) H 01/27/24 05:22
Eosinophils % 6.2 % (0-6) H 01/27/24 05:22
Basophils % 0.3 % (0-2) 01/27/24 05:22
Creatinine 0.6 mg/dL (0.7-1.3) L 01/27/24 05:22
Vital Signs
Vital Signs
Temp Pulse Resp BP Pulse Ox
97.2 F 72 17 137/80 96
01/27/24 11:05 01/27/24 11:05 01/27/24 11:05 01/27/24 11:05 01/27/24 11:05
--- NOTE | 2024-01-27 13:10 | PTOTSP ---
PATIENT FUNCTIONING INDEPENDENTLY ON LEVEL SURFACES WELL ELEVATIONS REQUIRING NO FURTHER ACUTE CARE SKILLED P.T. BP STABLE, NO COMPLAINTS OF LIGHTHEADEDNESS OR DIZZINESS. ENCOURAGED PATIENT TO CONTINUE TO AMBULATE IN ROOM/GONZALEZ AD YUMIKO. UPDATED
ATTENDING MD REGARDING PATIENT. WILL DISCHARGE FROM P.T. SERVICES.
--- NOTE | 2024-01-27 16:30 | CM ---
Addendum entered by Ayan Perez 01/27/24 16:32:
Referral for HH VN previously forwarded. Abdominal drain. No PT/OT needs.
Original Note:
Discharge Plan of Care: Anticipate no needs. Will continue to follow should needs change.
[2024-01-27] MEDS: COLACE PO (18:31)
[2024-01-27] MEDS: VALIUM INJECTION 5 MG IV (22:09)
[2024-01-27] MEDS: DETROL LA 4 MG PO (22:09)
[2024-01-28 03:13] VITALS: BP 153/84
[2024-01-28 04:55] LABS: % Basophils 0.4 % (0-2); % Eosinophils 6.1 % (0-6); % Lymphocytes 18.2 % (20.5-51.1); % Monocytes 11.8 % (1.7-9.3); % Neutrophils 61.5 % (42.2-75.2); Absolute Basophils 0.1 10^3/uL (0-0.2); Absolute Eosinophils 0.7 10^3/uL (0-0.7); Absolute Immature Granulocytes 0.2 10^3/uL (0-0.05); Absolute Lymphocytes 2.1 10^3/uL (1.2-3.4); Absolute Monocytes 1.4 10^3/uL (0.1-0.6); Absolute Neutrophils 7.2 10^3/uL (1.4-6.5); Hematocrit 26.3 % (39.0-52.0); Hemoglobin 9.2 g/dL (13.0-18.0); Mean Corpuscular Hgb 29.5 pg (27.0-31.0); Mean Corpuscular Volume 84.3 fL (80.0-94.0); Mean Platelet Volume 8.7 fL (7.4-10.4); Nucleated Red Blood Cells % 0 % (-); Platelet Count 513 10^3/uL (130-400); Red Blood Cell Count 3.12 10^6/uL (4.70-6.10); Red Cell Dist. Width 14.6 % (11.5-14.5); White Blood Cell Count 11.7 10^3/uL (4.8-10.8)
[2024-01-28 05:17] LABS: INR 1.14; PT 14.5 Sec (11.4-14.6)
[2024-01-28 05:18] LABS: APTT 31.3 Sec (23.4-35.0); Fibrinogen 433 MG/DL (199-459)
[2024-01-28 05:28] LABS: Blood Urea Nitrogen 11 mg/dl (9-20); Calcium 9.1 mg/dl (8.4-10.2); Carbon Dioxide 29 mmol/L (22-30); Chloride 97 mmol/L (98-107); Estimated Creatinine Clearance > 125 ml/min; Glucose 97 mg/dl (70-99); Iron 65 ug/dl (49-181); Potassium 4.3 mmol/L (3.5-5.1); Sodium 131 mmol/L (135-145); eGFR > 60.00
[2024-01-28 05:37] LABS: Percent Saturation 26 % (20-50); Total Iron Binding Capacity 242 ug/dl (261-462)
[2024-01-28 06:16] LABS: Vitamin B12 987 pg/ml (239-931)
[2024-01-28 06:19] LABS: D-Dimer 2.96 ug/mlFEU (0.00-0.50)
--- NOTE | 2024-01-28 07:17 | W.DS.TRANS ---
DC Summary - [employer]
-
Discharge Instructions:
Sleep Apnea Risk Intermediate
Discharge Diagnosis/Procedures Prostate Cancer, s/p Robotic Radical
Prostatectomy
Diet No restrictions
Activity No strenuous activity
Driving Restrictions while taking Tramadol
Bathing Restrictions OK to Shower
Other Services VN
Wound Care
VN: Please remove Casarez catheter and skin
nasrin [then apply Benzoin then full-length,
2 inch steri-strips] during AM on on Friday 02/02
;
Hand-irrigate Casarez TID PRN clots and/or
obstruction with 250 ml sterile saline or water
Instructions:
Stand-Alone Forms:
Changes to Home Medications: No
Discharge Medications:
DC Medications w/original date entered in [employer]
fish oil-dha-epa 1,200 mg-144 mg-216 mg capsule 1 ea PO DAILY Supplement 01/10/16
lisinopril 40 mg tablet (Zestril) 40 mg PO DAILY Blood Pressure 01/10/16
escitalopram oxalate 10 mg tablet (Lexapro) 10 mg PO DAILY Mental Health/Anxiety 01/13/24
hydrochlorothiazide 25 mg tablet 25 mg PO DAILY Fluid Retention/Swelling 01/13/24
multivitamin 1 tab PO DAILY Supplement 01/13/24
naproxen sodium 220 mg capsule 440 mg (2 x 220 mg) PO BID PRN pain #1 cap 01/22/24
tramadol 50 mg tablet 50 mg PO TID PRN severe pain #10 tabs 01/22/24
Home Medication Changes
Pending Results: Yes
Additional Pending Results:
pathology
[2024-01-28] MEDS: COLACE 100 MG PO (07:43)
[2024-01-28] MEDS: LEXAPRO 10 MG PO (07:43)
[2024-01-28] MEDS: ZESTRIL 40 MG PO (07:43)
[2024-01-28] MEDS: NORVASC 5 MG PO (07:43)
[2024-01-28 07:44] VITALS: BP 148/89
[2024-01-28] MEDS: POLYSPORIN/DOUBLE ANTIBIOTIC 1 APPLIC TOPICAL (07:45)
[2024-01-28] MEDS: COLACE PO (11:21)
--- NOTE | 2024-01-28 14:42 | CM ---
Patient has been medically cleared for discharge to home with [facility] services. Patient's will transport home.
[2024-01-28 15:17] VITALS: BP 125/73
[2024-02-06 19:31] LABS: Factor VIII Activity 297 % (56-191); Ristocetin Cofactor Activity 111 % (51-215); Von Willebrands Factor Antigen 220 % (52-214)
== END 2024-01-28 15:00 | disposition home health service (06) | DRG 707 ==
LOC: 2 SOUTH 15:08
PROVIDERS: Anesthesiology; Internal Medicine; Nurse Practitioner Acute Care; Nurse Practitioner Gerontology; Nurse Practitioner Primary Care; Urology; ADMITTING PHYSICIAN Specialist; ATTENDING PHYSICIAN Internal Medicine; CONSULT PHYSICIAN Internal Medicine Critical Care Medicine; FAMILY PHYSICIAN Internal Medicine; OTHER PHYSICIAN Internal Medicine; OTHER PHYSICIAN Internal Medicine Hematology & Oncology
PROC: 07BC4ZZ Excision of Pelvis Lymphatic, Percutaneous Endoscopic Approach (ICD-10-PCS; 2024-01-22)
PROC: 0VB34ZZ Excision of Bilateral Seminal Vesicles, Percutaneous Endoscopic Approach (ICD-10-PCS; 2024-01-22)
PROC: 0TU Urinary System, Supplement (ICD-10-PCS; 2024-01-22)
PROC: 0VT04ZZ Resection of Prostate, Percutaneous Endoscopic Approach (ICD-10-PCS; 2024-01-22)
PROC: 30233N1 Transfusion of Nonautologous Red Blood Cells into Peripheral Vein, Percutaneous Approach (ICD-10-PCS; 2024-01-23)
PROC: 0WCJ0ZZ Extirpation of Matter from Pelvic Cavity, Open Approach (ICD-10-PCS; 2024-01-24)
PROC: 0W3J0ZZ Control Bleeding in Pelvic Cavity, Open Approach (ICD-10-PCS; 2024-01-24)
DX: C61 Malignant neoplasm of prostate (principal); D62 Acute posthemorrhagic anemia; J98.11 Atelectasis; E87.1 Hypo-osmolality and hyponatremia; N99.821 Postprocedural hemorrhage of a genitourinary system organ or structure following other procedure; I95.81 Postprocedural hypotension; F32.A Depression, unspecified; F41.9 Anxiety disorder, unspecified; K66.0 Peritoneal adhesions (postprocedural) (postinfection); E78.5 Hyperlipidemia, unspecified; I10 Essential (primary) hypertension; H90.3 Sensorineural hearing loss, bilateral; N40.0 Benign prostatic hyperplasia without lower urinary tract symptoms; Y83.6 Removal of other organ (partial) (total) as the cause of abnormal reaction of the patient, or of later complication, without mention of misadventure at the time of the procedure; Z79.899 Other long term (current) drug therapy; Z87.891 Personal history of nicotine dependence
CPT/HCPCS: 88307; 88309; 36415; 71045; 71275; 74177; 80048; 80053; 82607; 82805; 83540; 83550; 83605; 83735; 83930; 83935; 84100; 84295; 84300; 84484; 85014; 85018; 85025; 85027; 85240; 85245; 85246; 85247; 85379; 85384; 85610; 85730; 86850; 86900; 86901; 86920; 88344; 93005; 97162; P9016; Q9967

== ENCOUNTER 2024-03-11 11:22 | Outpatient (RCR) | payer OTHER, SELFPAY | END 2024-03-11 23:59 | disposition home or self-care (01) | LOC: RPT 11:22 | PROVIDERS: ATTENDING PHYSICIAN Specialist; FAMILY PHYSICIAN Internal Medicine | DX: R27.8 Other lack of coordination (principal); C61 Malignant neoplasm of prostate; Z73.6 Limitation of activities due to disability | CPT/HCPCS: 97112; 97140; 97530 ==

== ENCOUNTER → 2024-06-16 17:35 | Outpatient (REF) | payer OTHER, SELFPAY | LOC: MRI 17:35 | PROVIDERS: ATTENDING PHYSICIAN Student in an Organized Health Care Education/Training Program; FAMILY PHYSICIAN Internal Medicine | DX: H90.3 Sensorineural hearing loss, bilateral (principal); H93.13 Tinnitus, bilateral | CPT/HCPCS: 70553; A9575 ==

== ENCOUNTER → 2024-11-16 07:13 | Outpatient (REF) | payer OTHER, SELFPAY | LOC: HWRCS 07:13 | PROVIDERS: ATTENDING PHYSICIAN Psychiatry & Neurology Neurology; FAMILY PHYSICIAN Internal Medicine | DX: I63.9 Cerebral infarction, unspecified (principal) | CPT/HCPCS: 93306 ==

== ENCOUNTER → 2024-11-20 10:34 | Outpatient (REF) | payer OTHER, SELFPAY | LOC: RCS 10:34 | PROVIDERS: ATTENDING PHYSICIAN Internal Medicine; FAMILY PHYSICIAN Internal Medicine | DX: I63.9 Cerebral infarction, unspecified (principal); R00.2 Palpitations | CPT/HCPCS: 93017 ==

== ENCOUNTER → 2024-11-24 17:07 | Outpatient (REF) | payer OTHER, SELFPAY | LOC: MRI 17:07 | PROVIDERS: ATTENDING PHYSICIAN Psychiatry & Neurology Neurology; FAMILY PHYSICIAN Internal Medicine | DX: I63.9 Cerebral infarction, unspecified (principal) | CPT/HCPCS: 70544; 70547 ==

== ENCOUNTER → 2024-12-21 08:13 | Outpatient (REF) | payer OTHER, SELFPAY | LOC: RCS 08:13 | PROVIDERS: ATTENDING PHYSICIAN Internal Medicine; FAMILY PHYSICIAN Internal Medicine; REFERRING PHYSICIAN Psychiatry & Neurology Neurology | DX: R00.2 Palpitations (principal); I10 Essential (primary) hypertension; E78.00 Pure hypercholesterolemia, unspecified | CPT/HCPCS: 93017; 93350 ==

== ENCOUNTER → 2025-06-29 06:46 | Outpatient (REF) | payer OTHER, SELFPAY | LOC: MRI 06:46 | PROVIDERS: ATTENDING PHYSICIAN Psychiatry & Neurology Neurology; FAMILY PHYSICIAN Internal Medicine | DX: I67.1 Cerebral aneurysm, nonruptured (principal) | CPT/HCPCS: 70544 ==